=== PATIENT | female | born 1980 | race Caucasian/White ===

== ENCOUNTER → 2020-02-10 06:55 | Outpatient (CLI) | payer OTHER, SELFPAY ==
--- NOTE | ~2020-02-10 | MM_ITS ---
EXAMINATION: MM screening mindi BI w yelena HISTORY: Screening mammogram TECHNIQUE: Craniocaudal and mediolateral oblique 3-D tomosynthesis images were obtained and synthetic 2-D images were generated. CAD analysis was submitted and interpreted. COMPARISON: No prior mammogram is available for comparison at this institution. BREAST PARENCHYMAL COMPOSITION: The breasts are heterogeneously dense, which may obscure small masses . FINDINGS: There is no evidence of suspicious mass, calcification, or architectural distortion to sugg est malignancy in either breast. There has been no suspicious interval change. IMPRESSION: 1. No mammographic evidence of malignancy. 2. Recommend routine screening mammography in one year. BI-RADS Category 1: Negative Reviewed, dictated and finalized at location A.
== END ==
PROVIDERS: PCP Nurse Practitioner Family; Visit Provider Nurse Practitioner Family
DX: Z12.31 Encounter for screening mammogram for malignant neoplasm of breast (principal)
CPT/HCPCS: 77063; 77067

== ENCOUNTER 2020-09-14 09:40 | Emergency (ER) | payer OTHER, SELFPAY ==
[2020-09-14 09:50] VITALS: BP 118/80; PULSE 63; RESP 16; TEMP 36.4; O2SAT 99
--- NOTE | 2020-09-14 10:03 | ED.GENADULT ---
HPI - General Adult General Chief complaint: Upper Respiratory Infection Stated complaint: Congestion Time Seen by Provider: 09/14/20 10:03 Source: patient and RN notes reviewed Mode of arrival: ambulatory Limitations: no limitations History of Present Illness HPI narrative: 39-year-old female presents with complaints of LT otalgia, upper respiratory infection, facial congestion, facial pain, fatigue, and intermittent headaches (not the worst of life) for the past 14 days. Zyrtec, Mucinex, and Tylenol with little to no relief. No facial swelling. Denies cough. Nasal congestion and rhinorrhea. No chest pain or shortness of breath. No exacerbating factors. Denies fever or chills. Denies nausea, vomiting, and abdominal pain. Tolerating po intake well. LMP 3 years ago due to endometrial ablation. Remains active. The patient reports she have not been diagnosed with COVID-19. Shreya says her and her family was tested for COVID on September 08 or September 09 as directed per PMD with NEGATIVE results and she continues to have above complaints. The patient reports she is not waiting for the results of a COVID-19 lab test. The patient reports she do not have fever, chills, weakness, or fatigue. The patient reports she do not have a new or worsening cough or shortness of breath. Denies chest pain. The patient reports she do not have any sore throat, loss of taste, or diarrhea. Denies recent traveling. Denies concerns for COVID-19 or exposures been home with limited outdoor exposure except for essential household needs and return home. At this time, patient is not suspected of having COVID-19. Some parts of this dictation were generated by voice recognition software and may contain typographical and/or grammatical inaccuracies. Related Data Allergies Allergy/AdvReac Type Severity Reaction Status Date / Time No Known Allergies Allergy Verified 09/14/20 09:57 Review of Systems Review of Systems: Narrative: CONSTITUTIONAL: Denies fever, chills, sweats. Complains of fatigue. EYES: Denies visual changes, redness, discharge. ENT: Complains of rhinorrhea, congestion, LT otalgia. Denies sore throat. CARDIOVASCULAR: Denies chest pain, palpitations, edema. RESPIRATORY: Denies dyspnea, wheezing, cough. GASTROINTESTINAL: Denies abdominal pain, nausea, vomiting, diarrhea. GENITOURINARY: Denies dysuria, hematuria, abnormal discharge. SKIN: Denies rash or itching. MUSCULOSKELETAL: Denies acute back pain, joint pain, or myalgia. NEUROLOGIC: Denies numbness or focal weakness. Complains of intermittent KELLY. PSYCHIATRIC: Denies anxiety or depression. All systems reviewed & are unremarkable except as noted in HPI and below. [facility] Past Medical History Medical History (Updated 09/15/20 @ 00:00 by Ilda Daezio) No significant past medical history Surgical History Surgical History (Updated 09/14/20 @ 10:13 by DAREK Nina) History of cholecystectomy History of endometrial ablation 3 years ago Family History Family History (Updated 09/14/20 @ 10:13 by DAREK Nina) Father Unknown family medical history Mother Diabetes mellitus Hypertension Social History Social History (Updated 09/14/20 @ 10:14 by DAREK Nina) Smoking status: Never smoker Tobacco type: cigarettes Second hand tobacco smoke exposure: No Alcohol intake: current Substance use: never Living arrangements: with family Occupation/Education: unemployed Gender identity (if verbalized by the patient): Female Sexual Orientation (if Verbalized by the Patient): Straight or Heterosexual Comments At time of signature, agree with nurse past medical, surgical, social, and family history. There is no relevant family history pertinent to the presenting complaint. Exam Narrative: Exam Narrative: GENERAL: This is a well-nourished, well-developed patient, in no apparent distress. Talks in full sentences and a
== END 2020-09-14 10:21 | disposition home or self-care (01) ==
PROVIDERS: Emergency Provider Nurse Practitioner Family; PCP Nurse Practitioner Family
DX: J32.9 Chronic sinusitis, unspecified (principal)
CPT/HCPCS: 99213; G0463

== ENCOUNTER → 2021-07-01 16:13 | Outpatient (CLI) | payer OTHER, SELFPAY ==
--- NOTE | ~2021-07-01 | MM_ITS ---
EXAMINATION: MM screening mindi BI w yelena HISTORY: Screening TECHNIQUE: Craniocaudal and mediolateral oblique 3-D tomosynthesis images were obtained and synthetic 2-D images were generated. CAD analysis was submitted and interpreted. COMPARISON: 02/10/2020 BREAST PARENCHYMAL COMPOSITION: The breasts are heterogeneously dense, which may obscure small masses . FINDINGS: There is no evidence of suspicious mass, calcification, or architectural distortion to sugg est malignancy in either breast. There has been no suspicious interval change. IMPRESSION: 1. No mammographic evidence of malignancy. 2. Recommend routine screening mammography in one year. BI-RADS Category 1: Negative Reviewed, dictated and finalized at location A.
== END ==
PROVIDERS: PCP Nurse Practitioner Family; Visit Provider Nurse Practitioner Family
DX: Z12.31 Encounter for screening mammogram for malignant neoplasm of breast (principal)
CPT/HCPCS: 77063; 77067

== ENCOUNTER → 2022-08-11 13:17 | Outpatient (CLI) | payer OTHER, SELFPAY ==
--- NOTE | ~2022-08-11 | MM_ITS ---
EXAMINATION: MM screening mindi BI w yelena HISTORY: Screening mammogram TECHNIQUE: Craniocaudal and mediolateral oblique 3-D tomosynthesis images were obtained and synthetic 2-D images were generated. CAD analysis was submitted and interpreted. COMPARISON: 07/01/2021, 02/10/2020 bilateral screening mammogram examinations BREAST PARENCHYMAL COMPOSITION: There are scattered areas of fibroglandular density. FINDINGS: Stable fibroglandular asymmetry. There is no evidence of suspicious mass, calcification, or architectural distortion to suggest malignancy in either breast. There has been no suspicious interv al change. IMPRESSION: 1. No mammographic evidence of malignancy. 2. Recommend routine screening mammography in one year. BI-RADS Category 2: Benign finding(s). Reviewed, dictated and finalized at location A.
== END ==
PROVIDERS: PCP Nurse Practitioner Family; Visit Provider Nurse Practitioner Family
DX: Z12.31 Encounter for screening mammogram for malignant neoplasm of breast (principal)
CPT/HCPCS: 77063; 77067

== ENCOUNTER 2023-02-13 13:40 | Outpatient (CLI) | payer OTHER, SELFPAY ==
--- NOTE | ~2023-02-13 | MMUS_ITS ---
EXAMINATION: MM diagnostic mindi RT w yelena, US breast RT limited HISTORY: Palpable right breast abnormality TECHNIQUE: Additional 3-D tomosynthesis images of the right breast were performed and synthetic 2-D i mages were generated. CAD analysis was submitted and interpreted. High resolution Limited right breas t ultrasound was performed. COMPARISON: Comparison to multiple prior studies sequentially, with oldest reviewed study dated 02/09. BREAST PARENCHYMAL COMPOSITION: The breasts are heterogeneously dense, which may obscure small masses . FINDINGS: MAMMOGRAPHIC FINDINGS: There are no suspicious masses, calcifications or architectural distortion in the right breast to sug gest malignancy. ULTRASOUND: Limited right breast ultrasound: At 10:00, 6 cm from the nipple, there is a 3 mm cyst. No suspicious masses are identified to suggest malignancy. IMPRESSION: 1. No evidence for malignancy in the right breast. Benign findings. 2. Routine yearly screening mammogram and regular clinical breast examination are recommended. BI-RADS Category 2: Benign finding(s). Reviewed, dictated and finalized at location A. IMPRESSION: 1. No evidence for malignancy in the right breast. Benign findings. 2. Routine yearly screening mammogram and regular clinical breast examination a re recommended. BI-RADS Category 2: Benign finding(s).
== END 2023-02-13 13:41 | disposition home or self-care (01) ==
LOC: ANHIMG 13:43
PROVIDERS: PCP Nurse Practitioner Family; Visit Provider Nurse Practitioner Family
DX: N63.10 Unspecified lump in the right breast, unspecified quadrant (principal)
CPT/HCPCS: 76642; 77061; 77065; G0279

== ENCOUNTER → 2023-04-06 14:01 | Outpatient (CLI) | payer OTHER, SELFPAY ==
--- NOTE | ~2023-04-06 | XR_ITS ---
XR cervical spine 4-5V INDICATION: Cervicalgia. Headaches. TECHNIQUE: 4 views of the cervical spine. FINDINGS: No prior studies for comparison. The cervical spine is visualized to the cervicothoracic junction. There is straightening of cervical lordosis which may be due to patient positioning or muscle spasm. There is no prevertebral soft tissu e swelling, listhesis, or loss of vertebral body height. There is mild uncinate hypertrophy at C3-4 a nd C4-5. Intervertebral disc spaces are normal. The osseous central canal is patent. No displaced c ervical spine fractures are identified. IMPRESSION: 1. Mild cervical spondylosis.. Reviewed, dictated and finalized at location L.
== END ==
PROVIDERS: PCP Nurse Practitioner Family; Visit Provider Nurse Practitioner Family
DX: M47.812 Spondylosis without myelopathy or radiculopathy, cervical region (principal)
CPT/HCPCS: 72050

== ENCOUNTER 2023-09-05 12:50 | Outpatient (CLI) | payer OTHER, SELFPAY ==
--- NOTE | ~2023-09-05 | MM_ITS ---
EXAMINATION: MM screening mindi BI w yelena HISTORY: Screening mammogram TECHNIQUE: Craniocaudal and mediolateral oblique 3-D tomosynthesis images were obtained and synthetic 2-D images were generated. CAD analysis was submitted and interpreted. COMPARISON: 02/13/2023 diagnostic right mammogram and limited right breast ultrasound 08/11/2022, 07/01/2021, 02/10/2020 bilateral screening mammogram examinations BREAST PARENCHYMAL COMPOSITION: The breasts are heterogeneously dense, which may obscure small masses . FINDINGS: There is no evidence of suspicious mass, calcification, or architectural distortion to sugg est malignancy in either breast. There has been no suspicious interval change. IMPRESSION: 1. No mammographic evidence of malignancy. 2. Recommend routine screening mammography in one year. BI-RADS Category 1: Negative Reviewed, dictated and finalized at location A.
== END 2023-09-05 12:51 | disposition home or self-care (01) ==
LOC: CHSIMG 12:51
PROVIDERS: PCP Nurse Practitioner Family; Visit Provider Nurse Practitioner Family
DX: Z12.31 Encounter for screening mammogram for malignant neoplasm of breast (principal)
CPT/HCPCS: 77063; 77067

== ENCOUNTER 2024-03-19 14:40 | Outpatient (CLI) | payer OTHER, SELFPAY ==
--- NOTE | 2024-03-19 14:55 | ECHO_ITS ---
Patient Info Name: Shreya Mcgarry Age: 43 years : 1980 Gender: Female Ht: 59 in Wt: 124 lbs BSA: 1.54 m2 HR: 67 bpm BP: 114 / 79 mmHg Heart Rhythm: Sinus Rhythm Technical Quality: Fair Exam Date: 03/19/2024 3:11 PM Exam Location: Echo Lab Patient Status: Outpatient Admit Date: 03/19/2024 Staff Ordering Physician: Rosario Nielsen APRN Camera Maker: José Miguel Brunner RDCS Attending Provider: Rosario Nielsen APRN Referring Physician: Morales ROSALES; Exam Type: CA echo doppler color flow Study Info Indications Z82.79 - Family history of other congenital malformations, deformations and chromosomal abnormalities Complete two-dimensional, color flow and Doppler transthoracic echocardiogram is performed. Summary 1. Complete two-dimensional, color flow and Doppler transthoracic echocardiogram is performed. 2. Left ventricular chamber dimension is normal. 3. Left ventricular systolic function is normal, estimated at 65-70%. 4. The left ventricular diastolic function is normal. 5. Right ventricular systolic function is normal. 6. No significant valvular disease. Left Ventricle Left ventricular chamber dimension is normal. Left ventricular systolic function is normal, estimated at 65-70%. There is no increased left ventricular wall thickness. The left ventricular diastolic function is normal. Right Ventricle Right ventricular chamber dimension is normal. Right ventricular systolic function is normal. Left Atria Left atrial chamber dimension is normal. Right Atria Right atrial chamber dimension is normal. Atrial Septum Intact interatrial septum visualized by color flow imaging. Aortic Valve The aortic valve is probable trileaflet. There is no aortic valve stenosis. Pulmonic Valve The pulmonic valve is not well visualized. There is trace pulmonic regurgitation. Mitral Valve There is trace mitral valve regurgitation. Tricuspid Valve There is trace tricuspid valve regurgitation. Pericardium/Pleural There is no pericardial effusion. Inferior Vena Cava Normal inferior vena cava with >50% collapse upon inspiration consistent with normal right atrial pressure, 3 mmHg. Aorta The aortic root size at the sinus of Valsalva is normal. Left Ventricular Outflow Tract Name Value Normal LVOT 2D LVOT Diameter 1.9 cm LVOT Doppler LVOT Peak Gradient 5 mmHg LVOT Mean Gradient 3 mmHg LVOT VTI 22 cm LVOT VTI/AV VTI Ratio 0.7 LVOT Stroke Volume 60 ml LVOT CO 3.9 l/min LVOT CI 2.5 l/min/m2 Pulmonic Valve Name Value Normal RVOT Doppler RVOT Peak Gradient 2 mmHg PV Doppler PV Peak Gradient 4 mmHg
== END 2024-03-19 14:41 | disposition home or self-care (01) ==
PROVIDERS: PCP Nurse Practitioner Family; Visit Provider Nurse Practitioner Family
DX: Z82.79 Family history of other congenital malformations, deformations and chromosomal abnormalities (principal)
CPT/HCPCS: 93306

== ENCOUNTER 2024-09-20 07:42 | Outpatient (CLI) | payer OTHER, SELFPAY ==
--- NOTE | ~2024-09-20 | MM_ITS ---
EXAMINATION: MM screening mindi BI w yelena HISTORY: Screening TECHNIQUE: Craniocaudal and mediolateral oblique 3-D tomosynthesis images were obtained and synthetic 2-D images were generated. CAD analysis was submitted and interpreted. COMPARISON: Comparison to multiple prior studies sequentially, with oldest reviewed study dated 02/09. BREAST PARENCHYMAL COMPOSITION: Dense: The breasts are heterogeneously dense, which may obscure small masses FINDINGS: New small partially obscured mass in the upper inner quadrant of the right breast, anterior depth. The left breast is stable without evidence for malignancy. IMPRESSION: 1. New partially obscured mass upper inner quadrant of the right breast, middle depth. 2. Additional mammographic views and possible breast ultrasound are recommended. BI-RADS Category 0: Incomplete: Needs additional imaging evaluation. Reviewed, dictated and finalized at location B. IMPRESSION: 1. New partially obscured mass upper inner quadrant of the right breast, middle depth. 2. Additional mammographic views and possible breast ultrasound are recommended . BI-RADS Category 0: Incomplete: Needs additional imaging evaluation.
== END 2024-09-20 07:43 | disposition home or self-care (01) ==
LOC: CHSIMG 07:42
PROVIDERS: PCP Nurse Practitioner Family; Visit Provider Nurse Practitioner Family
DX: Z12.31 Encounter for screening mammogram for malignant neoplasm of breast (principal); R92.8 Other abnormal and inconclusive findings on diagnostic imaging of breast
CPT/HCPCS: 77063; 77067

== ENCOUNTER 2024-09-30 08:11 | Outpatient (CLI) | payer OTHER, SELFPAY ==
--- NOTE | ~2024-09-30 | MMUS_ITS ---
EXAMINATION: MM diagnostic mindi RT w yelena, US breast RT complete HISTORY: Follow-up right breast asymmetries TECHNIQUE: Additional 3-D tomosynthesis images of the right breast were performed and synthetic 2-D i mages were generated. CAD analysis was submitted and interpreted. High resolution complete right [address] ultrasound was performed. COMPARISON: Comparison to multiple prior studies sequentially, with oldest reviewed study dated 02/09. BREAST PARENCHYMAL COMPOSITION: Not dense: There are scattered areas of fibroglandular density. FINDINGS: MAMMOGRAPHIC FINDINGS: There are no suspicious masses, calcifications or architectural distortion to suggest malignancy. ULTRASOUND: Complete US of all 4 quadrants of the breast/s and retroareolar region was reviewed. At 11:00 near th e nipple there is an oval hypoechoic parallel orientation mass with heterogeneous internal echotextur e measuring 4 mm. No internal vascularity or posterior features. This mass is likely benign. IMPRESSION: 1. Probable benign right breast mass at 11:00 near the nipple. 2. Recommend 6 month follow-up Limited right breast ultrasound BI-RADS category 3, probably benign findings. Reviewed, dictated and finalized at location B. [employer] IMPRESSION: 1. Probable benign right breast mass at 11:00 near the nipple. 2. Recommend 6 month follow-up Limited right breast ultrasound BI-RADS category 3, probably benign findings.
== END 2024-09-30 08:12 | disposition home or self-care (01) ==
LOC: CHSIMG 08:12
PROVIDERS: PCP Nurse Practitioner Family; Visit Provider Nurse Practitioner Family
DX: R92.8 Other abnormal and inconclusive findings on diagnostic imaging of breast (principal)
CPT/HCPCS: 76641; 77061; 77065; G0279

== ENCOUNTER 2024-12-02 06:19 | Day surgery (SDC) | payer OTHER, SELFPAY ==
[2024-10-23 11:14] VITALS: BMI 24.5
[2024-11-12 12:32] VITALS: BMI 23.7
[2024-12-02 07:19] VITALS: BP 129/86; PULSE 85; RESP 18; TEMP 36.9; O2SAT 100
[2024-12-02] MEDS: LACTATED RINGERS 1,000 ML 150 ML IV CONT (07:39)
--- NOTE | 2024-12-02 07:51 | P.PNAN_ITS ---
Anes - Initial Pre Proc Eval Procedure: Operation Date: 12/02/24 08:30 Proposed Procedures p Screening Colonoscopy - Clint Olsen DO Date/Time: 12/02/24 07:51 Surgeon: Clint Olsen DO Pre Op Diagnosis: Neoplasm Screening Patient Data Age: 44 Gender: F Height: 1.5 m Weight: 53.6 kg Last Vital Signs Temp 36.9 C 12/02/24 07:19 Pulse 85 12/02/24 07:19 Resp 18 12/02/24 07:19 BP 129/86 12/02/24 07:19 Pulse Ox 100 12/02/24 07:19 O2 Del Method Room Air 12/02/24 07:19 Allergies Allergy/AdvReac Type Severity Reaction Status Date / Time No Known Allergies Allergy Verified 12/02/24 07:14 Home Medications ?Medication ?Instructions ?Recorded ?Confirmed ?Type pravastatin 10 mg tablet 10 mg PO DAILY #90 tabs 10/22/24 12/02/24 Rx Patient hx anesthesia problems: none Family hx anesthesia problems: none Results Review: All pre-operative results and documents have been reviewed as part of the pre-operative evaluation. COUNTS INCLUDE 234 BEDS AT THE [facility] Past Medical History Medical History Family history of congenital heart disease No significant past medical history Surgical History Surgical History History of cholecystectomy (2009) History of endometrial ablation (~2017) 3 years ago Family History Family History Father Unknown family medical history Mother Diabetes mellitus Hypertension Depression Grandparent Diabetes mellitus Heart disease Social History Social History Social History: 10/19/24 very confident with medical forms Smoking status: Never smoker Tobacco type: cigarettes Second hand tobacco smoke exposure: No Alcohol intake: current Alcohol use details: 0-1 per week Substance use: never Substance use type: does not use Do You Feel Safe in your Home?: Yes Lack of Transportation: No Lack of Food: Never True Current Housing: I Have Housing Concerned About Future Housing: No Difficulty Paying Gas/Electric Bills: No Difficulty Paying for Meds: No Currently Unemployed: No Education: Bachelor's Degree Difficulty w/ Childcare or Family Care: No Living arrangements: with family Occupation/Education: unemployed Gender identity (if verbalized by the patient): Female Sexual Orientation (if Verbalized by the Patient): Straight or Heterosexual Agree to blood products: Yes Anes - Eval Final PreProcedure Day of Procedure 12/02/24 07:51 Patient weight: normal Heart: regular rate and rhythm Lungs: clear to auscultation Airway: Mallampati scale class II Neurological: alert and oriented Last oral intake: >/= 8 hours ASA classification: II Emergent: no Anesthetic plan: proceed Anesthesia type and monitoring: general GIVS and standard monitoring Results Review: All pre-operative results and documents have been reviewed as part of the pre- operative evaluation. Informed Consent: The patient's anesthetic plan and its attendant risks and benefits were discussed with the patient/family/POA. Questions were solicited and answers provided to the satisfaction of the patient/family/POA.
--- NOTE | 2024-12-02 08:20 | PM.IMHP ---
H&P: HPI History of Present Illness Date/Time: 12/02/24 08:20 Chief Complaint: screening for colorectal cancer Narrative: this is a 44-year-old woman who presents for colonoscopy. She has never had a colonoscopy before. She denies any hematochezia or melena. She denies any family history of colon cancer. Review of Systems Review of Systems: All systems reviewed & are unremarkable except as noted in HPI and below Constitutional: Constitutional: Denies chills, Denies fever(s), Denies headache(s) and Denies weight loss Eyes: Eyes: Denies change in vision ENT: Denies dizziness, Denies headache(s), Denies neck mass and Denies throat swelling Cardiovascular: Cardiovascular: Denies chest pain, Denies lightheadedness and Denies dyspnea Respiratory: Respiratory: Denies cough, Denies dyspnea and Denies wheezing Gastrointestinal: Gastrointestinal: Denies abdominal pain, Denies change in bowel habits, Denies nausea and Denies vomiting Genitourinary: Genitourinary: Denies hematuria and Denies dysuria Musculoskeletal: Musculoskeletal: Reports as per HPI Integumentary/Breasts: Skin/Breast: Reports as per HPI Neurologic: Denies dizziness and Denies headache(s) Allergic/Immunologic: Allergic/Immunologic: Denies throat swelling and Denies wheezing PMF Past Medical History Medical History Family history of congenital heart disease No significant past medical history Surgical History Surgical History History of cholecystectomy (2009) History of endometrial ablation (~2017) 3 years ago Family History Family History Father Unknown family medical history Mother Diabetes mellitus Hypertension Depression Grandparent Diabetes mellitus Heart disease Social History Social History Social History: 10/19/24 very confident with medical forms Smoking status: Never smoker Tobacco type: cigarettes Second hand tobacco smoke exposure: No Alcohol intake: current Alcohol use details: 0-1 per week Substance use: never Substance use type: does not use Do You Feel Safe in your Home?: Yes Lack of Transportation: No Lack of Food: Never True Current Housing: I Have Housing Concerned About Future Housing: No Difficulty Paying Gas/Electric Bills: No Difficulty Paying for Meds: No Currently Unemployed: No Education: Bachelor's Degree Difficulty w/ Childcare or Family Care: No Living arrangements: with family Occupation/Education: unemployed Gender identity (if verbalized by the patient): Female Sexual Orientation (if Verbalized by the Patient): Straight or Heterosexual Agree to blood products: Yes Meds Home Medications and Allergies Home Medications ?Medication ?Instructions ?Recorded ?Confirmed ?Type pravastatin 10 mg tablet 10 mg PO DAILY #90 tabs 10/22/24 12/02/24 Rx Allergies Allergy/AdvReac Type Severity Reaction Status Date / Time No Known Allergies Allergy Verified 12/02/24 07:14 Vital Signs Vital Signs - 24 hr 12/02/24 07:19 Temperature 98.4 F Pulse Rate 85 Respiratory Rate 18 Blood Pressure 129/86 Pulse Oximetry 100 Oxygen Delivery Room Air Exam Const: General: no acute distress and alert Orientation/consciousness: patient oriented x3 HENMT: Head: normocephalic and atraumatic Ears: hearing grossly normal bilaterally Face/Nose/Sinus: Normal nares present Mouth: Yes Normal oral and palatal mucosa present Eyes: Periorbital: periorbital findings normal Sclera: sclerae normal EOM: EOMs intact bilaterally Neck: Neck: normal visual inspection, no lymphadenopathy and trachea midline Chest: Chest palpation & inspection: normal inspection of the chest Resp: Effort & Inspection: normal respiratory effort Auscultation: clear to auscultation bilaterally Cardio: Jugular venous distension: no JVD Rate: regular rate Rhythm: regular rhythm Heart sounds: S1 normal heart sound present and S2 normal heart sound present Peripheral pulses: Peripheral pulses 2+ throughout GI: Inspection: normal to inspection GI Palp: Yes Soft to palpation, No Tenderness to palpation present (GI), No Guarding due to palpation present (GI) and No Rebound tenderness present Percussion: Yes normal to percussion Auscultation: normal bowel sounds : General: Yes no CVA tenderness Back/Spine/Pelvis: Back: no CVA tenderness Neuro: General: patient oriented x3, no focal motor deficits and CN's II-XI intact bilaterally Cognition (Neuro): normal cognition Speech: normal speech Motor exam (neuro): 5/5 motor strength present throughout Extrem: General: capillary refill normal and no clubbing, cyanosis or edema Assessment and Plan Assessment and plan (1) Screening for colorectal cancer: Code(s): Z12.11 - Encounter for screening for malignant neoplasm of colon; Z12.12 - Encounter for screening for malignant neoplasm of rectum Status: Acute Assessment and Plan: I have recommended colonoscopy. I have discussed the procedure, risks, benefits, and alternatives. Questions were answered. Patient is agreeable to proceed.
[2024-12-02 08:46] VITALS: BP 98/61; PULSE 81; RESP 16; O2SAT 98
[2024-12-02 08:56] VITALS: BP 105/70; PULSE 78; RESP 16; O2SAT 100
[2024-12-02 09:06] VITALS: BP 101/63; PULSE 70; RESP 18; O2SAT 100
--- NOTE | 2024-12-02 09:19 | WPDANESPN ---
Anes - Prog Note Post-Op Date/Time: 12/02/24 09:19 Cardiovascular status: normal Respiratory status: normal Airway patency: baseline Mental status: baseline Post-Op hydration status: normal Vital Signs: Last Vital Signs Temp 36.9 C 12/02/24 07:19 Pulse 70 12/02/24 09:06 Resp 18 12/02/24 09:06 BP 101/63 12/02/24 09:06 Pulse Ox 100 12/02/24 09:06 O2 Del Method Room Air 12/02/24 09:06 Pain Score (VAS): 0/10 I/O: Intake & Output 12/01/24 12/02/24 12/02/24 23:59 07:59 15:59 Intake Total 850 Balance 850 Patient Feedback: Patient satisfied with anesthetic care.
--- OUTSIDE RECORDS SUMMARY | 2024-12-08 14:44 | XMS_ITS | Encounter Summary ---
Author Organization [facility] Address [address] [place] [id number] Care Team Providers Care Thread Grinder Tool Name Role Phone Unavailable Primary Care Provider Unavailabl e Encounter Details Date Type Department Care Team (Late st Contact Info) Description 12/11/2020 Lab Requisition [facility] Community Testing [facility] [address] [place] [address] [place] [address] [place] [address] Social History Tobacco Use Types Packs/Day Years Used Date Smoking Tobacco: Never Assessed Comments Unknown Sex and Gender Information Value Date Recorded Sex Assigned at Not on file Legal Sex Female 11:07 AM INFORMATION SYSTEMS SECURITY DEVELOPER Gender Identity Not on file Sexual Orientation Not on file documented as of this encounter Plan of Treatment Not on file documented as of this encounter Procedures Procedure Name Priority Date/Time Associated Diagnosis Comments SARS-COV-2 PCR [facility] ONLY Routine 12/11/2020 11:14 AM INFORMATION SYSTEMS SECURITY DEVELOPER documented in this encounter Visit Diagnoses Not on filedocumented in this encounter
--- OUTSIDE RECORDS SUMMARY | 2024-12-08 14:44 | XMS_ITS | Clinical Summary ---
Author Organization [facility] Address [address] [place] [address] Care Team Providers Care Assayer Helper Name Role Phone Brandi Griffith MD Primary Care Provider Source Comments [facility],non-owned Affiliates and Associated Physician Practices is amultiple site organization consisting of ambulatory clinics and hospital sitesin [place], [place], [place] and [place]. This disclosure is being madepursuant to the Care Everywhere program and may not contain all information available regarding this patient. Last updated 18.[facility] Allergies No known active allergies Medications * Be aware that medications may not be up to date on this document. Alwaysverify current medications with the patient. 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 Family History Medical History Relation Name Comments Hypertension Maternal Grandfather Diabetes; unknown type Maternal Grandmother Hypertension Maternal Grandmother Diabetes; unknown type Mother Hypertension Mother Relation Name Status Comments Maternal Grandfather Maternal Grandmother Mother Social History Tobacco Use Types Packs/Day Years Used Date Smoking Tobacco: Never Smokeless Tobacco: Never Alcohol Use Standard Drinks/Week Comments Yes 0 (1 standard drink = 0.6 oz pur e alcohol) Very Rarely - per pt Sex and Gender Information Value Date Recorded Sex Assigned at Not on file Gender Identity Not on file Sexual Orientation Not on file Plan of Treatment Health Maintenance Due Date Last Done Comments COLOGUARD (AGES 45-75) - COL ON CA SCREENING 1979 COLON MONITORING 1979 COLONOSCOPY - COLON CA SCREENING 1979 CT COLONOGRAPHY - COLON CA SCREENING 1979 Colorectal Cancer Screening 1979 FIT - COLON CA SCREENING 1979 FLEX SIG - COLON CA SCREENING 1979 LIPID TESTING 1979 MAMMOGRAM 1979 PAP SMEAR 1979 HIV SCREENING 1994 HEPATITIS C SCREENING 10/12/1997 DTAP/TDAP/TD VACCINES (1 - Tdap) 1998 HEPATITIS B VACCINE (1 of 3 - 19+ 3-dose series) 1998 COVID-19 VACCINE (1 - 2023-2 5 season) 2024 INFLUENZA VACCINE (#1) 2024 09/12/2019 DEPRESSION SCREENING 11/27/2024 ZOSTER VACCINE (1 of 2) 2029 HIB VACCINE Aged Out No longer eligi ble based on patient's age to complete this topic HPV VACCINE Aged Out No longer eligi ble based on patient's age to complete this topic MENINGOCOCCAL VACCINE Aged Out No suzanne shiloh eligible based on patient's age to complete this topic PNEUMOCOCCAL VACCINE Aged Out No long er eligible based on patient's age to complete this topic Care Teams Assayer Helper Relationship Specialty Start Date End Date Brandi Griffith MD [address] [place] [id number] PCP - General 08/17/20
--- OUTSIDE RECORDS SUMMARY | 2024-12-08 14:44 | XMS_ITS | Referral Summary ---
Author Organization [email or web address] Address [address] [place] [address] Care Team Providers Care Scorer Single Name Role Phone Brandi Griffith MD Primary Care Provider Source Comments [email or web address],non-owned Affiliates and Associated Physician Practices is amultiple site organization consisting of ambulatory clinics and hospital sitesin [place], [place], [place] and [place]. This disclosure is being madepursuant to the Care Everywhere program and may not contain all information available regarding this patient. Last updated 18.[email or web address] Allergies No known active allergies Medications * Be aware that medications may not be up to date on this document. Alwaysverify current medications with the patient. 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
--- OUTSIDE RECORDS SUMMARY | 2024-12-08 14:44 | XMS_ITS | Encounter Summary ---
Author Organization [facility] Address [address] [place] [address] Care Team Providers Care Banking Consultant Name Role Phone Unavailable Primary Care Provider Unavailabl e Encounter Details Date Type Department Care Team (Late st Contact Info) Description 12/11/2020 11:15 AM PATCH SANDER Rapid Evaluation [place] [facility] Community Testing [address] [id number] Social History Tobacco Use Types Packs/Day Years Used Date Smoking Tobacco: Never Assessed Comments Unknown Sex and Gender Information Value Date Recorded Sex Assigned at Not on file Legal Sex Female 11:07 AM PATCH SANDER Gender Identity Not on file Sexual Orientation Not on file documented as of this encounter Plan of Treatment Not on file documented as of this encounter Visit Diagnoses Not on filedocumented in this encounter
--- OUTSIDE RECORDS SUMMARY | 2024-12-08 14:44 | XMS_ITS | Patient Health Summary ---
Author Organization [facility] Address [address] [place] [address] Care Team Providers Care Plant Technical Specialist Name Role Phone Brandi Griffith MD Primary Care Provider Note from [facility],non-owned Affiliates and Associated Physician Practices is amultiple site organization consisting of ambulatory clinics and hospital sitesin [place], [place] and [place]. This disclosure is being madepursuant to the Care Everywhere program and may not contain all information available regarding this patient. Last updated 18.[facility] Allergies No known active allergies Medications * Be aware that medications may not be up to date on this document. Alwaysverify current medications with the patient. * MULTIPLE VITAMIN PO Active Problems Problem Noted Date Diagnosed Date [...] on file Sexual Orientation Not on file Procedures * OPH OCT TEST [facility](Performed 08/17/2020) Performed for Drusen of both optic discs * OPH COLOR FUNDUS PHOTOGRAPHY [facility](Performed 08/17/2020) Performed for Pseudopapilledema of both optic discs * OPH VISUAL FIELD TEST [facility](Performed 08/17/2020) Performed for Pseudopapilledema of both optic discs * OPH OCT TEST [facility](Performed 08/17/2020) Performed for Pseudopapilledema of both optic discs * EYE EXAM(Performed 08/13/2020) Results * OPH OCT TEST [facility] (08/17/2020 10:24 AM CDT) Anatomical Region Laterality Modality Other 08/17/2020 10:2 4 AM CDT Caio Ferrell MD OPHTHALMOLOGY SERVIC ES ORDERABLES * OPH COLOR FUNDUS PHOTOGRAPHY [facility] (08/17/2020 9:22 AM CDT) Anatomical Region Laterality Modality Other 08/17/2020 9:22 AM CDT Karly Loza MD OPHTHALMOLOGY SERVIC ES ORDERABLES * OPH VISUAL FIELD TEST [facility] (08/17/2020 8:54 AM CDT) Anatomical Region Laterality Modality Other 08/17/2020 8:54 AM CDT Karly Loza MD OPHTHALMOLOGY SERVIC ES ORDERABLES * OPH OCT TEST [facility] (08/17/2020 7:11 AM CDT) Anatomical Region Laterality Modality Other 08/17/2020 7:11 AM CDT Karly Loza MD OPHTHALMOLOGY SERVIC ES ORDERABLES * EYE EXAM (08/13/2020 7:40 AM CDT) Anatomical Region Laterality Modality Other Narrative 08/13/2020 7:40 AM CDT Ordered by an unspecified provider. Scanned Document SCANNING ONLY Care Teams Plant Technical Specialist Relationship Specialty Start Date End Date Brandi Griffith MD [address] [place] [id number] PCP - General 08/17/20
--- OUTSIDE RECORDS SUMMARY | 2024-12-08 14:44 | XMS_ITS | Clinical Summary ---
Author Organization [facility] Care Team Providers Care Water Resource Project Manager Name Role Phone Unavailable Primary Care Provider Unavailabl e Social History Tobacco Use Types Packs/Day Years Used Date Smoking Tobacco: Never Assessed Comments Unknown Sex and Gender Information Value Date Recorded Sex Assigned at Not on file Legal Sex Female 11:07 AM TOOL PUSHER Gender Identity Not on file Sexual Orientation Not on file Plan of Treatment Health Maintenance Due Date Last Done Comments Hepatitis C Virus (HCV) Screening 1979 Hepatitis B Immunization (1 of 3 - 19+ 3-dose series) 1998 Pap Smear 2000 Cervical Cancer Screening (CCS) 2009 HPV/Cotest 2009 Discussion re Starting/Frequ ency of Mammograms 2019 Influenza Immunization (#1) 2024 09/12/2019 SARS-COV-2 Immunization (2023- season) 2024 Colonoscopy 2024 Colorectal Cancer Screening 2024 Respiratory Syncytial Virus (RSV) Immunization (Adult) (1 - 1-dose 75+ series) 2054 DTaP/Tdap/Td Immunization Discontinued 01/18/2016 TdaP Immunization Completed 01/18/2016 Meningococcal Immunization (ACWY) Aged Out No longer eligible based on patient's age to complete this topic Pneumococcal Immunization Combined Aged Out No longer eligible b ased on patient's age to complete this topic Rotavirus Immunization Aged Out No lo nger eligible based on patient's age to complete this topic
--- OUTSIDE RECORDS SUMMARY | 2024-12-08 14:44 | XMS_ITS | Data Portability ---
Author Organization [place] - [facility] [employer], Main Office Address [address] [place] [address] Care Team Providers Care Home Visitor Name Role Phone SEB ROSARIO Primary Care Provider [phone] Assessment Encounter Date Assessment Date Assessment LastModified by Organization Details LastModified Time 04/06/2023 04/06/2023 Labs after 04/19/23 Not available 04/06/2023 11:23:43 Plan of Treatment Reminders Order Date Submit Date Provider Last Modified By Organization Details Last Modified Time Details Appointments None recorded. Lab vitamin B12, serum [address], [address] [place], [address], 3 07:56:25 vitamin D, 25-hydroxy, total, serum [address], [address] [place], [address], 3 07:56:25 TSH, serum, reflex free T4 [address], [address] [place], [address], 3 07:56:24 lipid panel, serum [address], [address] [place], [address], 3 07:56:24 CMP, serum or plasma [address], [address] [place], [address], 3 07:56:24 HbA1c (hemoglobin A1c), blood [address], [address] [place], [address], 07:56:24 CBC w/ auto diff [address], [address] [place], [address], 07:56:24 pap, IG + reflex HR HPV [address] [facility] ([facility] [address] [place], [address], 10:54:57 Referral None recorded. Procedures None recorded. Surgeries None recorded. Imaging XR, cervical spine 2022 023 [facility], [address], [place] [address], [place], [address], 16:28:24 Medication Orders cyclobenzap rine 5 mg tablet [address] [id number], [address] [place], [place], [id number], 10:04:10 rizatriptan 10 mg disintegrat ing tablet 2022 023 [id number], [address] [place], [place], [id number], 17:33:51 Patient TargetsNo targets recorded. Patient Instructions Encounter Date Encounter Id Patient Instructions Last Modified By Organization Details Last Modified Time 09/05/2023 [id number] FU in 1 year for well woman after 09/06/24 Not available 09/05/2023 10:37:15 Reason for Referral None Reported. Results Created Date Observation Date Name Description Value Unit Range Abnormal Flag Note LastModifiedBy Organization Detail LastModifiedTime 08/01/20 23 08/01/2023 CBC/C OMPLE TE BLD COUNT W/DIF F white blood cells 5.4 x10'3 /uL 4.2-10 .8 Not Available [facility] (Lab) [address] [place], [address], 08/01/2023 13:58:47 08/01/20 23 08/01/2023 CBC/C OMPLE TE BLD COUNT W/DIF F red blood cells 4.77 x10'6 /uL 3.80-5 .20 Not Available [facility] (Lab) [address] [place], [address], 08/01/2023 13:58:47 08/01/20 23 08/01/2023 CBC/C OMPLE TE BLD COUNT W/DIF F hemoglobin 14.2 g/dL 12.0-1 5.6 Not Available [facility] (Lab) [address] [place], [address], 08/01/2023 13:58:47 08/01/20 23 08/01/2023 CBC/C OMPLE TE BLD COUNT W/DIF F hematocrit 44.0 % 35.7-4 5.7 Not Available [facility] (Lab) [address] [place], [address], 08/01/2023 13:58:47 08/01/20 23 08/01/2023 CBC/C OMPLE TE BLD COUNT W/DIF F mean red cell volume 92.2 fL 82.0-9 9.0 Not Available [facility] (Lab) [address] [place], [address], 08/01/2023 13:58:47 08/01/20 23 08/01/2023 CBC/C OMPLE TE BLD COUNT W/DIF F mean red cell hemoglobin 29.8 pg 27.0-3 3.0 Not Available [facility] (Lab) [address] [place], [address], 08/01/2023 13:58:47 08/01/20 23 08/01/2023 CBC/C OMPLE TE BLD COUNT W/DIF F mean RBC HGB concentratio n 32.3 g/dL 31.0-3 6.0 Not Available [facility] (Lab) [address] [facility] [place], [address], 08/01/2023 13:58:47 08/01/20 23 08/01/2023 CBC/C OMPLE TE BLD COUNT W/DIF F red cell distribution width 12.1 % 11.8-1 5.5 Not Available [facility] (Lab) [address] [place], [address], 08/01/2023 13:58:47 08/01/20 23 08/01/2023 CBC/C OMPLE TE BLD COUNT W/DIF F platelets 296 x10'3 /uL 150-40 0 Not Available [facility] (Lab) [address] [place], [address], 08/01/2023 13:58:47 08/01/20 23 08/01/2023 CBC/C OMPLE TE BLD COUNT W/DIF F mean platelet volume 9.3 fL 9.0-12 .4 Not Available [facility] (Lab) [address] [place], [address], 08/01/2023 13:58:47 08/01/20 23 08/01/2023 CBC/C OMPLE TE BLD COUNT W/DIF F neutrophils 52.7 % 39.0-7 2.0 Not Available [facility] (Lab) [address] [place], [address], 08/01/2023 13:58:47 08/01/20 23 08/01/2023 CBC/C OMPLE TE BLD COUNT W/DIF F lymphocytes 32.1 % 16.0-4 7.0 Not Available [facility] (Lab) [address] [place], [address], 08/01/2023 13:58:47 08/01/20 23 08/01/2023 CBC/C OMPLE TE BLD COUNT W/DIF F monocytes 10.9 % 5.0-12 .0 Not Available [facility] (Lab) [address] [place], [address], 08/01/2023 13:58:47 08/01/20 23 08/01/2023 CBC/C OMPLE TE BLD COUNT W/DIF F eosinophils 2.6 % 1.0-7. 0 Not Available [facility] (Lab) [address] [place], [address], 08/01/2023 13:58:47 08/01/2008/01/2023 CBC/C OMPLE TE BLD COUNT W/DIF F basophils 1.3 % 0.0-2. 0 Not Available [facility] (Lab) [address] [place], [address], 08/01/2023 13:58:47 08/01/20 23 08/01/2023 CBC/C OMPLE TE BLD COUNT W/DIF F immature granulocytes 0.4 % 0.00-0 .50 Not Available [facility] (Lab) [address] [place], [address], 08/01/2023 13:58:47 08/01/20 23 08/01/2023 CBC/C OMPLE TE BLD COUNT W/DIF F neutrophils, absolute count 2.86 x10'3 /uL 1.5-8. 0 Not Available [facility] (Lab) [address] [place], [address], 08/01/2023 13:58:47 08/01/20 23 08/01/2023 CBC/C OMPLE TE BLD COUNT W/DIF F lymphocytes, absolute count 1.74 x10'3 /uL 1.07-3 .43 Not Available [facility] (Lab) [address] [place], [address], 08/01/2023 13:58:47 08/01/20 23 08/01/2023 CBC/C OMPLE TE BLD COUNT W/DIF F monocytes, absolute count 0.59 x10'3 /uL 0.29-0 .99 Not Available [facility] (Lab) [address] [place], [address], 08/01/2023 13:58:47 08/01/20 23 08/01/2023 CBC/C OMPLE TE BLD COUNT W/DIF F eosinophils, absolute count 0.14 x10'3 /uL 0.02-0 .53 Not Available [facility] (Lab) [address] [place], [address], 08/01/2023 13:58:47 08/01/20 23 08/01/2023 CBC/C OMPLE TE BLD COUNT W/DIF F basophils, absolute count 0.07 x10'3 /uL 0.01-0 .08 Not Available [facility] (Lab) [address] [place], [address], 08/01/2023 13:58:47 08/01/2008/01/2023 CBC/C OMPLE TE BLD COUNT W/DIF F immature granulocytes ,absolute 0.02 x10'3 /uL 0.00-0 .05 Not Available [facility] (Lab) [address] [place], [address], 08/01/2023 13:58:47 08/01/20 23 08/01/2023 CBC/C OMPLE TE BLD COUNT W/DIF F nucleated red blood cells 0.0 % -0 Not Available [facility] (Lab) [address] [place], [address], 08/01/2023 13:58:47 08/01/20 23 08/01/2023 CBC/C OMPLE TE BLD COUNT W/DIF F NRBC# 0.00 x10'3 /uL Not Available [facility] (Lab) [address] [place], [address], 08/01/2023 13:58:47 08/01/20 23 08/01/2023 COMPR EHENS KLEBER METAB OLIC PANEL sodium 139 mmol/ L 137-14 5 Not Available [facility] (Lab) [address] [place], [address], 08/01/2023 14:42:07 08/01/20 23 08/01/2023 COMPR EHENS KLEBER METAB OLIC PANEL potassium 4.4 mmol/ L 3.5-5. 1 Not Available [facility] (Lab) [address] [place], [address], 08/01/2023 14:42:07 08/01/20 23 08/01/2023 COMPR EHENS KLEBER METAB OLIC PANEL chloride 105 mmol/ L 98-107 Not Available [facility] (Lab) [address] [place], [address], 08/01/2023 14:42:07 08/01/20 23 08/01/2023 COMPR EHENS KLEBER METAB OLIC PANEL carbon dioxide 26 mmol/ L 22-30 Not Available [facility] (Lab) [address] [place], [address], 08/01/2023 14:42:07 08/01/20 23 08/01/2023 COMPR EHENS KLEBER METAB OLIC PANEL anion gap 12.4 mmol/ L 14-22 low Not Available [facility] (Lab) [address] [place], [address], 08/01/2023 14:42:07 08/01/20 23 08/01/2023 COMPR EHENS KLEBER METAB OLIC PANEL glucose 87 mg/dL 70-99 Not Available [facility] (Lab) [address] [place], [address], 08/01/2023 14:42:07 08/01/20 23 08/01/2023 COMPR EHENS KLEBER METAB OLIC PANEL BUN 17 mg/dL 8-19 Not Available [facility] (Lab) [address] [place], [address], 08/01/2023 14:42:07 08/01/20 23 08/01/2023 COMPR EHENS KLEBER METAB OLIC PANEL creatinine 0.71 mg/dL 0.66-1 .25 Not Available [facility] (Lab) [address] [place], [address], 08/01/2023 14:42:07 08/01/20 23 08/01/2023 COMPR EHENS KLEBER METAB OLIC PANEL GFR >60 Refer ence Range : Pioneer ge GFR Healt hy Adult : >60 mL/mi n/1.7 3 m2 Chron ic Kidne y Disea se: 15-60 mL/mi n/1.7 3 m2 Kidne y Failu re: <15/m L/min /1.73 m2 www.n iddk. nih.g ov The MDRD study equat ion has not been valid ated in child marnie <18 years of age; pregn ant women ; the elder ly >85 years of age; or in some racia l or ethni c subgr oups, such as [facility] nics. Outsi de the valid ated colleen eters , estim ated GFR is less accur ate, requi ring clini [place] judgm ent on a case- by-ca se basis . Clini [place] inter preta tion for other races and ages must be made by the clini bill. The MDRD study equat ion has not been valid ated for the evalu ation of serum creat inine relat ed to nutri sugar l statu s or medic ation usage . For perso ns <18 years of age, a pedia tric GFR calcu lator is avail able on the [facility] websi te: https ://radha platt.rashid giles/pr ofess ional s/kdo qi/gf r_cal culat or Not Available [facility] (Lab) [address] [facility] [place], [address], 08/01/2023 14:42:07 08/01/20 23 08/01/2023 COMPR EHENS KLEBER METAB OLIC PANEL alkaline phosphatase 57 U/L 38-126 Not Available [facility] (Lab) [address] [place], [address], 08/01/2023 14:42:07 08/01/20 23 08/01/2023 COMPR EHENS KLEBER METAB OLIC PANEL alanine aminotransfe rase 16 U/L 0-35 Not Available [facility] (Lab) [address] [place], [address], 08/01/2023 14:42:07 08/01/20 23 08/01/2023 COMPR EHENS KLEBER METAB OLIC PANEL aspartate aminotransfe rase 21 U/L 15-37 Not Available [facility] (Lab) [address] [place], [address], 08/01/2023 14:42:07 08/01/20 23 08/01/2023 COMPR EHENS KLEBER METAB OLIC PANEL bilirubin, total 0.30 mg/dL 0.20-1 .30 Not Available [facility] (Lab) [address] [place], [address], 08/01/2023 14:42:07 08/01/20 23 08/01/2023 COMPR EHENS KLEBER METAB OLIC PANEL calcium 9.0 mg/dL 8.4-10 .2 Not Available [facility] (Lab) [address] [place], [address], 08/01/2023 14:42:07 08/01/20 23 08/01/2023 COMPR EHENS KLEBER METAB OLIC PANEL total protein 7.0 g/dL 6.3-8. 2 Not Available [facility] (Lab) [address] [place], [address], 08/01/2023 14:42:07 08/01/20 23 08/01/2023 COMPR EHENS KLEBER METAB OLIC PANEL albumin 4.2 g/dL 3.4-5. 0 Not Available [facility] (Lab) [address] [place], [address], 08/01/2023 14:42:07 08/01/20 23 08/01/2023 COMPR EHENS KLEBER METAB OLIC PANEL globulin 2.8 g/dL 2.6-4. 2 Not Available [facility] (Lab) [address] [place], [address], 08/01/2023 14:42:07 08/01/2008/01/2023 COMPR EHENS KLEBER METAB OLIC PANEL A/G ratio 1.5 ratio 1.0-2. 0 Not Available [facility] (Lab) [address] [place], [address], 08/01/2023 14:42:07 08/01/2008/01/2023 LIPID PANEL cholesterol 245 mg/dL 140-19 9 high NIH EMELIA NSUS RECOM MENDA TION FOR BRAD STERO L: ADULT CHILD LOW RISK: <200 <170 BORDE RLINE : <200- 239 ----- HIGH RISK: >240 >200 Not Available [facility] (Lab) [address] [place], [address], 08/01/2023 14:42:14 08/01/2008/01/2023 LIPID PANEL triglyceride s 49 mg/dL 0-150 NIH EMELIA NSUS REPOR T RECOM MENDA TION FOR TRIGL YCERI GIORGIO: ADULT CHILD LOW RISK: <150 ----- BODER LINE: 150-1 99 ----- HIGH RISK: >200 ----- Not Available [facility] (Lab) [address] [place], [address], 08/01/2023 14:42:14 08/01/2008/01/2023 LIPID PANEL HDL cholesterol 64 mg/dL 40- Not Available [facility] (Lab) [address] [place], [address], 08/01/2023 14:42:14 08/01/20 23 08/01/2023 LIPID PANEL LDL cholesterol, calculated 171 mg/dL 0-130 high NIH EMELIA NSUS REPOR T RECOM MENDA TIONS FOR LDL: ADULT CHILD LOW RISK <130 <110 (OPTI MAL LDL) <100 ----- BORDE RLINE : 130-1 59 ----- HIGH RISK: >160 >130 A TRIGL YCERI DE RESUL T >400 INVAL IDATE S THE CALCU LATIO N FOR LDL FRACT IONAT ION - THE LDL RESUL T WILL NOT BE REPOR NUNU. Not Available [facility] (Lab) [address] [place], [address], 08/01/2023 14:42:14 08/01/2008/01/2023 VITAM IN D 25-HY DROXY vd25oh 43.2 NG/mL 30-100 Vitam in D Statu s: Defic ient: <20 ng/mL Insuf ficie nt: 20-29 ng/mL Suffi cient : 30-10 0 ng/mL Not Available [facility] (Lab) [address] [place], [address], 08/01/2023 15:01:21 08/01/2008/01/2023 TSH W/REF HERMANN FT4 TSH with reflex free T4 1.120 uIU/m L 0.465- 4.680 Not Available [facility] (Lab) [address] [place], [address], 08/01/2023 15:10:15 08/01/20 23 08/01/2023 HEMOG LOBIN A1C HA1C 5.0 % 4.0-6. 0 Diabe susan Scree dorothy Crite frankie: <5.7% Consi stent with absen ce of diabe susan 5.7-6 .4% Consi stent with incre ased risk for diabe susan (pred iabet es) >OR=6 .5% Consi stent with diabe susan REFER ENCE: Diabe susan Care 2016, 39(Webster ppl.1 ):s13 -s22 Not Available [facility] (Lab) [address] [place], [address], 08/01/2023 15:17:12 08/01/20 23 08/01/2023 VITAM IN B12 (KAREEM JEN ) vb12 868 pg/mL 239-93 1 Not Available [facility] (Lab) [address] [place], [address], 08/01/2023 15:29:00 09/05/2009/07/2023 PAP THINP REP, REFLE X HPV diagnosis: Armando SHAHID FOR INTRA EPITH ELIAL LESIO N OR MICHAELLE JOY . Not Available [facility] (Lab) [address] [place], [address], 09/07/2023 20:08:48 09/05/2009/07/2023 PAP THINP REP, REFLE X HPV specimen adequacy: Armando Leavitt Satis sarah reyes for evalu ation . No endoc ervic al compo nent is id entif ied. Not Available [facility] (Lab) [address] [place], [address], 09/07/2023 20:08:48 09/05/2009/07/2023 PAP THINP REP, REFLE X HPV performed by: Armando Ortiz, Cytoiman valerio (ASCP ) Not Available [facility] (Lab) [address] [place], [address], 09/07/2023 20:08:48 10/10/20 23 09/07/2023 PAP THINP REP, REFLE X HPV . . Not Available [facility] (Lab) [address] [place], [address], 09/07/2023 20:08:48 09/05/20 23 09/07/2023 PAP THINP REP, REFLE X HPV note: Commen t The Pap smear is a scree dorothy test desig isaac to aid in the detec tion of randa ligna nt and malig nant condi tions of the uteri ne cervi x. It is not a diagn ostic proce dure and shoul d not be used as the sole means of detec ting cervi [place] cance r. Both false -posi tive and false -nega tive repor ts do occur . . Not Available [facility] (Lab) [address] [place], [address], 09/07/2023 20:08:48 09/05/20 23 09/07/2023 PAP THINP REP, REFLE X HPV test methodology: Commen t This liqui d based ThinP rep(R ) pap test was scree isaac with the use of an image guide d syste m. Not Available [facility] (Lab) [address] [place], [address], 09/07/2023 20:08:48 09/05/20 23 09/07/2023 PAP THINP REP, REFLE X HPV . Commen t The HPV DNA refle x crite frankie were not met with this speci men resul t there fore, no HPV testi ng was perfo rmed. . Perfo rmed at: [facility] [place] [address] [address] [facility] , [place] [address] Lab Direc tor: Dimitri milan MD, Phone : [phone] Perfo rmed at: [facility] [place] [address] , [place] [address] Lab Direc tor: Unruly pedroza MD, Phone : [phone] Not Available [facility] (Lab) [address] [place], [address], 09/07/2023 20:08:48 11/17/20 23 11/17/2023 LIPID PANEL cholesterol 202 mg/dL 140-19 9 high NIH EMELIA NSUS RECOM MENDA TION FOR BRAD STERO L: ADULT CHILD LOW RISK: <200 <170 BORDE RLINE : <200- 239 ----- HIGH RISK: >240 >200 Not Available [facility] (Lab) [address] [place], [address], 11/17/2023 14:29:07 11/17/20 23 11/17/2023 LIPID PANEL triglyceride s 40 mg/dL 0-150 NIH EMELIA NSUS REPOR T RECOM MENDA TION FOR TRIGL YCERI GIORGIO: ADULT CHILD LOW RISK: <150 ----- BODER LINE: 150-1 99 ----- HIGH RISK: >200 ----- Not Available [facility] (Lab) [address] [place], [address], 11/17/2023 14:29:07 11/17/20 23 11/17/2023 LIPID PANEL HDL cholesterol 65 mg/dL 40- Not Available [facility] (Lab) [address] [place], [address], 11/17/2023 14:29:07 11/17/20 23 11/17/2023 LIPID PANEL LDL cholesterol, calculated 129 mg/dL 0-130 NIH EMELIA NSUS REPOR T RECOM MENDA TIONS FOR LDL: ADULT CHILD LOW RISK <130 <110 (OPTI MAL LDL) <100 ----- BORDE RLINE : 130-1 59 ----- HIGH RISK: >160 >130 A TRIGL YCERI DE RESUL T >400 INVAL IDATE S THE CALCU LATIO N FOR LDL FRACT IONAT ION - THE LDL RESUL T WILL NOT BE REPOR NUNU. Not Available [facility] (Lab) [address] [place], [address], 11/17/2023 14:29:07 11/17/20 23 11/17/2023 HEPAT IC/LI BO PANEL alkaline phosphatase 53 U/L 38-126 Not Available [facility] (Lab) [address] [place], [address], 11/17/2023 14:29:18 11/17/20 23 11/17/2023 HEPAT IC/LI BO PANEL alanine aminotransfe rase 18 U/L 0-35 Not Available [facility] (Lab) [address] [place], [address], 11/17/2023 14:29:18 11/17/20 23 11/17/2023 HEPAT IC/LI BO PANEL aspartate aminotransfe rase 23 U/L 15-37 Not Available [facility] (Lab) [address] [place], [address], 11/17/2023 14:29:18 11/17/20 23 11/17/2023 HEPAT IC/LI BO PANEL bilirubin, total 0.40 mg/dL 0.20-1 .30 Not Available [facility] (Lab) [address] [place], [address], 11/17/2023 14:29:18 11/17/20 23 11/17/2023 HEPAT IC/LI BO PANEL bilirubin, conjugated (direct) 0.00 mg/dL 0.00-0 .30 Not Available [facility] (Lab) [address] [place], [address], 11/17/2023 14:29:18 11/17/20 23 11/17/2023 HEPAT IC/LI BO PANEL biliurubin,u ncong. (indirect) 0.30 mg/dL 0.00-1 .1 Not Available [facility] (Lab) [address] [place], [address], 11/17/2023 14:29:18 11/17/20 23 11/17/2023 HEPAT IC/LI BO PANEL total protein 7.2 g/dL 6.3-8. 2 Not Available [facility] (Lab) [address] [place], [address], 11/17/2023 14:29:18 11/17/20 23 11/17/2023 HEPAT IC/LI BO PANEL albumin 4.2 g/dL 3.4-5. 0 Not Available [facility] (Lab) [address] [place], [address], 11/17/2023 14:29:18 11/17/20 23 11/17/2023 HEPAT IC/LI BO PANEL globulin 3.0 g/dL 2.6-4. 2 Not Available [facility] (Lab) [address] [place], [address], 11/17/2023 14:29:18 11/17/20 23 11/17/2023 HEPAT IC/LI BO PANEL A/G ratio 1.4 ratio 1.0-2. 0 Not Available [facility] (Lab) [address] [place], [address], 11/17/2023 14:29:18 04/06/20 23 04/06/2023 XR, cervi [place] spine No observ ation record ed. [email or web address] [place] [address] [facility], [place], [address], 04/10/2023 15:28:37 09/05/20 23 09/05/2023 MAMMO , scree dorothy, digit al, bilat eral No observ ation record ed. [facility] [address] [place], [address], 09/05/2023 19:11:54 Result Notes None recorded. Problems Name Problem SNOMED Code Status Onset Date Resolution Date Notes Provider Name and Address Organization Details Recorded Time Seasonal allergic rhinitis 623457875 Active 2021 Not Available [employer] 21:30:29 Sinusitis 69173806 Active 2021 Not Available [facility] 3 21:30:29 Anxiety 61931834 Active 2020 [facility] Available [facility] 3 21:30:29 Upper respirator y infection 20670206 Active 2021 Not Available [facility] 3 21:30:30 Female stress incontinen ce 69521948 Active 2021 Not Available [facility] 3 21:30:30 Fatigue 73609370 Active 2020 Not Available [facility] 3 21:30:30 Mass of right breast 2079167949011 9106 Active 2022 Rosario Nielsen NP [address], [place], [address] , [employer] [facility] [employer] [facility] 3 14:33:43 Pain of left shoulder joint 4171580333241 9109 Active 2022 Rosario Nielsen NP [address], [address], [place], [address] , [employer] [facility] [employer] [facility] 3 14:40:38 Contusion of right hand 4948386250104 9108 Active 2022 Rosario Nielsen NP [address], [address], [place], [address] , [employer] [facility] [employer] [facility] 3 18:47:12 Contusion of left thigh 4066688580277 9101 Active 2022 Rosario Nielsen NP [address], [address], [place], [address] , [employer] [facility] 3 18:47:19 Abrasion of skin of hand 625633405 Active 2022 Rosario Nielsen NP [address], [place], [address] , [employer] [facility] 3 18:47:44 Neck pain 64294103 Active 2022 Rosario Nielsen NP [address], [address], [place], [address] , [employer] [facility] [employer] 3 11:02:14 Hyperlipid emia 26042743 Active 2022 Rosario Nielsen NP [address], [address], [place], [address] , [facility] [employer] [facility] [employer] 3 11:16:32 Vitamin D deficiency 01857222 Active 2022 Rosario Nielsen NP [address], [address], [place], [address] , [facility] [employer] [facility] [employer] 3 11:17:42 Vitamin B12 deficiency (non anemic) 81691939 Active 2022 Rosario Nielsen NP [address], [address], [place], [address] , [facility] [employer] [facility] [employer] 3 11:17:52 Headache 86616033 Active 2022 Rosario Nielsen NP [address], [address], [place], [address] , [facility] [employer] [facility] [employer] 3 17:14:47 Hyperchole sterolemia 58114584 Active 2022 Rosario Nielsen NP [address], [place], [address] , [facility] [employer] [facility] [employer] 3 10:20:37 Problem Notes None recorded. Procedures Surgical History Date Name Laterality Status Provider Name and Address Organization Details Recorded Time 09/05/20 23 Date of Last Pap Smear completed Rosario Holguin RN [facility] [employer] 09/05/2023 10:09:46 09/05/20 23 Most Recent Mammogram completed Rosario Nielsen NP [address], [place], [address], [facility] [employer] 09/05/2023 19:09:20 11/27/19 10 cholecystectomy completed Shreya Coon CMA [employer] [facility] [employer] [facility] 01/27/2023 14:25:49 Imaging Results Imaging Date Name Status [facility] Details LastModified Time 04/06/2023 XR, cervical spine completed [email or web address] [facility] [address], [place], [address], 04/10/2023 15:28:37 09/05/2023 MAMMO, screening, digital, bilateral completed [facility] [address] [facility], [place], [address], 09/05/2023 19:11:54 Procedure Notes None recorded. Medical Equipment None Reported. Allergies Allergen ID Allergen Name Allergen Category Reaction Reaction Severity Criticality Documentation Date Start Date Code Code System Note Provider Name and Address Organization Details Recorded Time 11788 rosuvasta tin medicatio n palpitati ons Not available Not available 09/05/2023 40491 2 RxNorm Rosario Holguin RN [facility], [place] - [facility] [employer] [facility] 3 10:03:47 Medications Name Sig Start Date Stop Date Status Note LastModified by Organization Details LastModified Time cyclobenzap rine 10 mg tablet Take 1 tablet 3 times a day by oral route. active Not Available Not Available No t Available azithromyci n 250 mg tablet TAKE 2 TABLETS (500 MG) BY ORAL ROUTE ONCE DAILY FOR 1 DAY THEN 1 TABLET (250 MG) BY ORAL ROUTE ONCE DAILY FOR 4 DAYS active Not Available Not Available No t Available metronidazo le 500 mg tablet Take 1 tablet every 8 hours by oral route for 7 days. active Not Available Not Available No t Available amoxicillin 500 mg tablet Take 1 tablet twice a day by oral route. active Not Available Not Available No t Available amoxicillin 875 mg tablet TK 1 T PO Q 12 H 03/24 completed Not Available Not Available Not Available pravastatin 10 mg tablet TAKE 1 TABLET BY MOUTH EVERY DAY AT BEDTIME active Not Available Not Available No t Available rizatriptan 10 mg disintegrat ing tablet TAKE 1 TABLET BY MOUTH ONCE DAILY NEEDED FOR HEADACHE. MAY REPEAT DOSE ONCE AFTER AT LEAST 2 HOURS active Not Available Not Available No t Available diclofenac sodium 75 mg tablet,beckie yed release Take 1 tablet twice a day by oral route for 7 days. active Not Available Not Available No t Available methylpredn isolone 4 mg tablets in a dose pack FOLLOW PACKAGE DIRECTION S 04/18 completed Not Available Not Available Not Available cefdinir 300 mg capsule TK ONE C PO BID 09/12 completed Not Available Not Available Not Available fluticasone propionate 50 mcg/actuati on nasal spray,suspe nsion SHAKE LIQUID AND USE 1 SPRAY IN EACH NOSTRIL DAILY NEEDED active Not Available Not Available No t Available loratadine 10 mg tablet TK 1 T PO D 09/12 completed Not Available Not Available Not Available amoxicillin 875 mg-potassiu m clavulanate 125 mg tablet TK 1 T PO Q 12 H FOR 10 DAYS 09/12 completed Not Available Not Available Not Available amoxicillin 500 mg-potassiu m clavulanate 125 mg tablet TAKE 1 TABLET BY MOUTH EVERY 12 HOURS 07/07 completed Not Available Not Available Not Available cyclobenzap rine 5 mg tablet Take 1 tablet 3 times a day by oral route. 09/05 completed Not Available Not Available Not Available rosuvastati n 5 mg tablet TAKE 1 TABLET BY MOUTH EVERY DAY 08/22 completed Not Available Not Available Not Available biotin 03/31 completed Not Available Not Available Not Available Vitals Date Recorded Body height Body mass index (BMI) Body weight Body temperature Heart rate Respiratory rate Oxygen saturation Oxygen saturation in Arterial blood by Pulse oximetry Systolic blood pressure Diastolic blood pressure Provider Name and Address Organization Details Last Updated DateTime 3 147.32 cm 27.7 kg/m2 09767.9 4 g 97.2 [degF] 60 /min 16 /min 97 % 97 % 108 mm[Hg] 70 mm[Hg] Rosario Holguin RN [facility] [employer] [facility] 3 10:53:39 Date Recorded Body height Body mass index (BMI) Body weight Body temperature Heart rate Respiratory rate Oxygen saturation Oxygen saturation in Arterial blood by Pulse oximetry Systolic blood pressure Diastolic blood pressure Provider Name and Address Organization Details Last Updated DateTime 3 149.86 cm 26.7 kg/m2 49973.1 9 g 96.2 [degF] 62 /min 16 /min 99 % 99 % 112 mm[Hg] 68 mm[Hg] Rosario Holgiun RN [facility] [employer] [facility] 3 10:06:58 Date Recorded Body height Body mass index (BMI) Body weight Body temperature Heart rate Respiratory rate Oxygen saturation Oxygen saturation in Arterial blood by Pulse oximetry Systolic blood pressure Diastolic blood pressure Provider Name and Address Organization Details Last Updated DateTime 149.86 cm 26.3 kg/m2 33669.4 1 g 96.5 [degF] 61 /min 16 /min 98 % 98 % 116 mm[Hg] 70 mm[Hg] Rosario Holguin RN [facility] [employer] [facility] 16:57:25 Date Recorded Body height Provider Name an d Address Organization Details Last Updated DateTime 11/17/2023 149.86 cm Rosario Holguin RN [facility] [employer] [facility] 11/17/2023 10:51:11 Social History Question Answer Notes LastModified by Organization Details LastModified Time Tobacco Smoking Status Never Smoker Not Available [facility] 01/25/2023 21:29:12 Do You Have An Advance Directive? No MIGRATION.0301 074721 Information not available 01/25/2023 What Is Your Level Of Alcohol Consumption? Occasional MIGRATION.0301 498774 Information not available 01/25/2023 Do You Wear A Helmet When Biking? No MIGRATION.0301 [id number] Information not available 01/25/2023 Is Blood Transfusion Acceptable In An Emergency? Yes Information not available 02/22/2023 What Is Your Level Of Caffeine Consumption? Moderate MIGRATION.0301 302394 Information not available 01/25/2023 How Much Tobacco Do You Chew? None MIGRATION.0301 889797 Information not available 01/25/2023 What Is Your Code Status? Full Code Information not available 02/22/2023 In The 14 Days Before Symptom Onset, Have You Had Close Contact With A Laboratory-conf irmed COVID-19 While That Case Was Ill? No MIGRATION.0301 470779 Information not available 01/25/2023 In The 14 Days Before Symptom Onset, Have You Had Close Contact With A Person Who Is Under Investigation For COVID-19 While That Person Was Ill? No MIGRATION.0301 147537 Information not available 01/25/2023 Are You Currently Employed? Yes [employer] [facility] [employer] Information not available 02/22/2023 What Type Of Diet Are You Following? REGULAR MIGRATION.0301 784273 Information not available 01/25/2023 Do You Or Have You Ever Used E-cigarettes Or Vape? Never Used Electronic Cigarettes MIGRATION.0301 891400 Information not available 01/25/2023 What Is The Highest Grade Or Level Of School You Have Completed Or The Highest Degree You Have Received? IG98359-8 MIGRATION.0301 206282 Information not available 01/25/2023 How Many Days Of Moderate To Strenuous Exercise, Like A Brisk Walk, Did You Do In The Last 7 Days? 5 Information not available 02/22/2023 On Those Days That You Engage In Moderate To Strenuous Exercise, How Many Minutes, On Average, Do You Exercise? 60 Information not available 02/22/2023 Have There Been Any Changes To Your Family Or Social Situation? No Information not available 09/05/2023 Are There Any Guns Present In Your Home? No MIGRATION.0301 414644 Information not available 01/25/2023 Do You Use Insect Repellent Routinely? No MIGRATION.0301 149857 Information not available 01/25/2023 Where Do You Live? [place] MIGRATION.0301 619744 Information not available 01/25/2023 Do You Have A Medical Power Of Cable Installer Repairer Helper? No MIGRATION.0301 227136 Information not available 01/25/2023 How Many Children Do You Have? 5 Information not available 02/22/2023 Have You Ever Been Counseled For Unhealthy Alcohol Use? No MIGRATION.0301 030657 Information not available 01/25/2023 Do You Have Any Pets? Yes MIGRATION.0301 889154 Information not available 01/25/2023 Do You Use Protection During Sex? No Information not available 02/22/2023 What Is Your Relationship Status? MIGRATION.0301 732605 Information not available 01/25/2023 Do You Use Your Seat Belt Or Car Seat Routinely? Yes MIGRATION.0301 598027 Information not available 01/25/2023 Are You Sexually Active? Yes Information not available 02/22/2023 Do You Have Smoke And Carbon Monoxide Detectors In Your Home? Yes MIGRATION.0301 042741 Information not available 01/25/2023 Are You Passively Exposed To Smoke? No MIGRATION.0301 126334 Information not available 01/25/2023 Do You Or Have You Ever Used Smokeless Tobacco? Never Used Smokeless Tobacco MIGRATION.0301 380961 Information not available 01/25/2023 Are There Any Smokers In Your House? No MIGRATION.0301 895240 Information not available 01/25/2023 How Much Tobacco Do You Smoke? No MIGRATION.0301 425581 Information not available 01/25/2023 Do You Participate In Social Media? Yes MIGRATION.0301 967186 Information not available 01/25/2023 What Types Of Sporting Activities Do You Participate In? Weightlifting, Walk Information not available 02/22/2023 Do You Feel Stressed (tense, Restless, Nervous, Or Anxious, Or Unable To Sleep At Night)? [id number] Information not available 09/05/2023 Do You Use Any Illicit Or Recreational Drugs? No MIGRATION.0301 340940 Information not available 01/25/2023 Do You Use Sunscreen Routinely? Yes MIGRATION.0301 354886 Information not available 01/25/2023 Has Tobacco Cessation Counseling Been Provided? No MIGRATION.0301 675817 Information not available 01/25/2023 Have You Recently Traveled Abroad? No Information not available 02/22/2023 Are You Currently In School? No MIGRATION.0301 400634 Information not available 01/25/2023 Do You Have Any Dietary Restrictions? No MIGRATION.0301 405364 Information not available 01/25/2023 Do You Or Have You Ever Used Any Other Forms Of Tobacco Or Nicotine? No MIGRATION.0301 185880 Information not available 01/25/2023 Sex: Female Functional Status Question Answer Note LastModified by Organizat ion Details LastModified Time What is your exercise level? Heavy MIGRATION.[id number] Information not available 01/25/2023 Mental Status None recorded. Family History Relationship Description Onset Age of this Age Resolved Age Notes LastModified by Organization Details LastModified Time Father Family history of malignant neoplasm MIGRATION.231 [id number] Not available 01/25/2023 21:29:22 Mother Heart disease MIGRATION.384 [id number] Not available 01/25/2023 21:29:23 Mother Type 2 diabetes mellitus 61 [id number] Not available 14:28:14 Maternal Grandfather Myocardial infarction 66 sudden Not available 04/06 11:09:30 Maternal Uncle Myocardial infarction 45 pacema ker, etc. Not available 04/06/2023 11:11:36 Notes:pt stated she found he r father- Mother psoriatic arthritis and RA. Bio father +diabetes. +history bone cancer, +heart disease, +VT, +ETOH. Medical History Condition Response HEADACHES/MIGRAINES Y Gynecological History Statement/Question Response Date of Last Mammogram 08/11/2022 Date of Last Colonoscopy Most Recent Bone Density Date of LMP Sexually Active? Y Date of Last Pap 03/31/2021 Date of Last Pap Smear 09/05/2023 Most Recent Mammogram 09/05/2023 Breast Problems Lump R breast Obstetrics History GPAL:G 0 P 0 0 0 0 Immunizations Vaccine Type Date Status Note Provider Nam e and Address Organization Details Recorded Time SARS-COV-2 (COVID-19) vaccine, UNSPECIFIED 1 completed Not Available [facility] 01/25/2023 21:31:50 SARS-COV-2 (COVID-19) vaccine, UNSPECIFIED 1 completed Not Available [facility] 01/25/2023 21:31:50 Influenza, split virus, quadrivalent, PF 9 completed Not Available [facility] 01/25/2023 21:31:50 Past Encounters Encounter ID Performer Location Encounter Start Date Encounter Closed Date Diagnosis/Indication Diagnosis SNOMED-CT Code Diagnosis ICD10 Code Diagnosis Note [id number] [address] [address] 03/24/2021 00:00:00 03/24/2021 09:36:[id number] [address] 1 03/31/2021 00:00:00 03/31/2021 09:37:[id number] [address] 04/29/2021 00:00:00 04/29/2021 13:24:[id number] [address] 07/07/2021 00:00:00 07/07/2021 16:32:07 [id number] [facility] [address] [place] [address] 08/10/2021 00:00:00 08/10/2021 15:30:19 [id number] [facility] [address] [place] [address] 12/14/2021 00:00:00 12/14/2021 08:28:01 [id number] [facility] [address] [place] [address] 12/27/2021 00:00:00 12/27/2021 09:41:46 [id number] [facility] [address] [place] [address] 04/13/2022 00:00:00 04/13/2022 09:39:39 [id number] [facility] [address] [place] [address] 04/18/2022 00:00:00 04/18/2022 18:00:42 [id number] [facility] [address] [place] [address] 04/19/2022 00:00:00 04/19/2022 18:45:26 [id number] [facility] [address] [place] [address] 01/27/2023 14:16:41 01/27/2023 16:38:57 Mass of right breast 5248055684 7405502 N63.10 Diagnostic mammogram and US right breast. Pain of le ft shoulder joint 2731606391 9482239 M25.512 PT referral to PT [id number] Rosario Nielsen NP [facility] [address] [place] [address] 02/22/2023 12:18:47 02/22/2023 12:59:28 Mass of right breast 7923116230 9028538 N63.10 Diagnostic mammogram and US right breast found 3 mm mass. Not what patient is concerned with. Fall W19.XXXA doing better day by day. Contusion of right hand 2321050609 6198224 S60.221A improving Contusion of left thigh 2756922930 2788885 S70.12XA improving Abrasion o f skin of hand 789327253 S60.512A improving [id number] Rosario Nielsen NP [facility] [address] 04/06/2023 10:39:31 04/06/2023 11:26:47 Neck pain 83466757 M54.2 Cyclobenza tanvir 5 mg tid prn. Caution for drowsiness , not to drive.Caps acin cream otc.Heat/i ce compress. Anemia screening 6737649 07 Z13.0 Diabetes m ellitus screening 206904371 Z13.1 Thyroid di sorder screening 383937158 Z13.29 Hyperlipidemia 74932308 E78.5 Vitamin D deficiency 347 75621 E55.9 Vitamin B1 2 deficiency (non anemic) 09771214 E53.8 [id number] Rosario Nielsen NP [address] [address] 08/01/2023 09:36:30 08/01/2023 13:00:20 [id number] Rosario Nielsen NP [address] [address] 09/05/2023 09:52:24 09/05/2023 11:03:22 Gynecologic examination 80349390 Z01.419 Encouraged well balanced meals, active lifestyle, and routine vision and dental appts. [id number] Rosario Nielsen NP [address] [address] 11/14/2023 16:44:47 11/14/2023 17:52:49 Headache 18177207 R51.9 Rizatripta n 10 mg prn.Ubrelv y 100 mg x2 and 50 mg x 1 sample given.Stay hydrated, well balanced meals. [id number] Rosario Nielsen NP [facility] [address] [place] [address] 11/17/2023 10:22:50 11/17/2023 11:08:46 Health Concerns Section Related Observation LastModified by Organization Detai ls LastModified Time None Recorded Concern Status LastModified by Organization Details LastModified Time None Recorded Advance Directives Directive N: Payers Encounter Date Sequence Insurance Name Policy Number Policy Hughes Covered Member ID Hughes Member ID Guarantor Name 04/06/2023 1 [facility] [employer] Kj Hoppes [id number] Shreya M [facility] 08/01/2023 1 [facility] [employer] Kj Hoppes [id number] Shreya [facility] 09/05/2023 1 [facility] [employer] Kj Hoppes [id number] Shreya M Hopp[facility] 11/14/2023 1 [facility] [employer] Kj Hoppes [id number] Shreya [facility] 11/17/2023 1 [facility] [employer] Kj M Hoppes [id number] Shreya [facility] Notes Date Note Type Note Provider Name and Address Organization Details Recorded Time 04/06/2023 text/html Here for neck pain. States she is not sure if this is result of her fall in her camper in January 2023. Cousin unexpectedly, increase stress with life, so really unsure cause. Did change pillow, saw chiro and had blading done (was tender), and has gotten some relief, but still bothersome. More pain right posterior neck vs left. Shooting pain right neck and behind right eye. Intermittent and stays < 1 hour period. Was taking tylenol extra strength or excedrin migraine. Ibuprofen did help more than either tylenol or excedrin. Rosario Nielsen NP [address], [place] [address], [place], [address], [facility] [employer] 04/06/2023 11:23:48 09/05/2023 text/html Here for well woman exam. No concerns.Mammogram 08/11/22. Has appt for later today. Rosario Nielsen NP [address], [facility] [address], [place], [address], [employer] [facility] [employer] 09/05/2023 10:38:20 11/14/2023 text/html Here for headach e for 1 week. Pain since 11/09/23.Off and on pain all day. May have started Monday.Took 2 excedrin migraine. Did not sleep well. Stomach upset after.Monday, went back to bed after getting up for a small nap. Had a lot of things to get done over the weekend. Had been wearing hair up, so took hair down, relieved some pain. Still had throbbing pain up and down in head. [place] [facility]. Went homeHas been taking magnesium powder in water before bed. Sleeping better.This morning woke up with headache. Pain in back of head, forehead, in temples, or behind eyes.Pressure to area of pain seems to help and sensitive to light. Has felt nauseated.Monday and Monday took 500 mg tylenol once daily. Helped some, did not go away, but did not make it go away. Throbbing ache. Tingles in face at times. Right now 7/10, When woke up 3/10, at worse 10/10.No change to diet. Water intake 64 ounces minimum.[facility] into [facility] this weekend- patient aware the previous owners had dogs and they had to vacuum up all the dust.Not having menstrual cycles any further. Not a person to have headaches. Rosario Nielsen NP [address], [facility] [address], [place], [address], [employer] [facility] [employer] 11/14/2023 17:35:31 OBGyn Episode No OBEpisode recorded.
== END 2024-12-02 08:55 ==
PROVIDERS: Visit Provider Surgery
PROC: 0DJD8ZZ Inspection of Lower Intestinal Tract, Via Natural or Artificial Opening Endoscopic (ICD-10-PCS; CPT 45378; principal; 2024-12-02 08:30)
DX: Z12.11 Encounter for screening for malignant neoplasm of colon (principal)
CPT/HCPCS: 45378

== ENCOUNTER 2025-03-31 09:59 | Outpatient (CLI) | payer OTHER, SELFPAY ==
--- NOTE | ~2025-03-31 | US_ITS ---
US breast RT limited 03/31/2025 10:21 Indication: Follow-up right breast mass Procedure: High-resolution Limited ultrasound of the right breast Comparison: Comparison to multiple prior studies sequentially, with oldest reviewed study dated 02/13. Findings: At 11:00 near the nipple there is an oval parallel oriented circumscribed hypoechoic 5 mm m ass without internal vascularity or posterior features, unchanged from prior study allowing Impression: 1: Stable 5 mm left breast mass 11:00 near the nipple, likely benign. Recommendation: Six-month interval diagnostic bilateral mammogram and Limited right breast ultrasound recommended. BI-RADS CATEGORY 3-PROBABLY BENIGN FINDING Reviewed, dictated and finalized at location A. Impression: 1: Stable 5 mm left breast mass 11:00 near the nipple, likely benign. Recommendation: Six-month interval diagnostic bilateral mammogram and Limited r ight breast ultrasound recommended. BI-RADS CATEGORY 3-PROBABLY BENIGN FINDING
--- OUTSIDE RECORDS SUMMARY | 2025-03-31 10:50 | XMS_ITS | Clinical Summary ---
Author Organization [facility] [employer] Address [address] [place] [address] Care Team Providers Care Steno Pool Supervisor Name Role Phone Brandi Griffith MD Primary Care Provider Source Comments [facility],non-owned Affiliates and Associated Physician Practices is amultiple site organization consisting of ambulatory clinics and hospital sitesin [place], [place], [place] and [place]. This disclosure is being madepursuant to the Care Everywhere program and may not contain all information available regarding this patient. Last updated 18.[facility] [employer] Allergies No known active allergies Medications * Be aware that medications may not be up to date on this document. Alwaysverify current medications with the patient. MULTIPLE VITAMIN PO Active Active Problems Problem Noted Date Diagnosed Date [...] e alcohol) Very Rarely - per pt Comments Unknown Sex and Gender Information Value Date Recorded Sex Assigned at Not on file Legal Sex Female 7:54 AM CDT Gender Identity Not on file Sexual Orientation [...] SCREENING 1979 LIPID TESTING 1979 MAMMOGRAM 1979 HIV SCREENING 1994 HEPATITIS C SCREENING 10/12/1997 DTAP/TDAP/TD VACCINES (1 - Tdap) 1998 HEPATITIS B VACCINE (1 of 3 - 19+ 3-dose series) 1998 COVID-19 VACCINE (1 - 2023-2 5 season) 2024 DEPRESSION SCREENING 11/27/2024 INFLUENZA VACCINE (Season Ended) 2025 09/12/20 19 ZOSTER VACCINE (1 of 2) 2029 HIB VACCINE Aged Out No longer eligi ble based on patient's age to complete this topic HPV VACCINE Aged Out No longer eligi ble based on patient's age to complete this topic MENINGOCOCCAL (Group B) VACC INE SHARED DECISION-MAKING Aged Out No longer eligibl e based on patient's age to complete this topic MENINGOCOCCAL GROUPS A/C/Y/W VACCINE Aged Out No longer eligible b ased on patient's age to complete this topic PNEUMOCOCCAL VACCINE Aged Out No long er eligible based on patient's age to complete this topic Care Teams Steno Pool Supervisor Relationship Specialty Start Date End Date Brandi Griffith MD [address] [place] [id number] PCP - General 08/17/20
--- OUTSIDE RECORDS SUMMARY | 2025-03-31 10:50 | XMS_ITS | Clinical Summary ---
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
--- OUTSIDE RECORDS SUMMARY | 2025-03-31 10:50 | XMS_ITS | Data Portability ---
Author Organization [place] [facility], Main Office Address [address] [place] [address] Assessment Encounter Date Assessment Date Assessment LastModified by Organization Details LastModified Time 04/06/2023 04/06/2023 Labs after 04/19/23 Not available 04/06/2023 11:23:43 Plan of Treatment Reminders Order Date Submit Date Provider Last Modified By Organization Details Last Modified Time Details Appointments None recorded. Lab pap, IG + reflex HR HPV 2022 023 [facility] (Lab), [address] [place], [address], 3 10:54:57 vitamin B12, serum [address], [address] [place], [address], 3 07:56:25 vitamin D, 25-hydroxy, total, serum [address], [address] [place], [address], 3 07:56:25 TSH, serum, reflex free T4 [address], [address] [place], [address], 3 07:56:24 lipid panel, serum [address], [address] [place], [address], 07:56:24 CMP, serum or plasma [address], [address] [place] [address], [address], 3 07:56:24 HbA1c (hemoglobin A1c), blood [address], [address] [place], [address], 07:56:24 CBC w/ auto diff [address], [address] [place] [address], [address], 07:56:24 Referral None recorded. Procedures None recorded. Surgeries None recorded. Imaging XR, cervical spine [address] [facility], [address], [address] [facility], [place], [address], 16:28:24 Medication Orders rizatriptan 10 mg disintegrat ing tablet 2022 023 [id number], [address] [place], [place], [id number], 17:33:51 cyclobenzap rine 5 mg tablet [address] [id number], [address], [place], [id number], 10:04:10 Patient TargetsNo targets recorded. Patient Instructions Encounter Date Encounter Id Patient Instructions Last Modified By Organization Details Last Modified Time 09/05/2023 [id number] FU in 1 year for well woman after 09/06/24 Not available 09/05/2023 10:37:15 Reason for Referral None Reported. Results Created Date Observation Date Name Description Value Unit Range Abnormal Flag Note LastModifiedBy Organization Detail LastModifiedTime 08/01/20 23 08/01/2023 CBC/C OMPLE TE BLD COUNT W/DIF F white blood cells 5.4 x10'3 /uL 4.2-10 .8 Not Available [facility] (Lab) [address] [place], [address], 08/01/2023 13:58:47 08/01/20 23 08/01/2023 CBC/C OMPLE TE BLD COUNT W/DIF F red blood cells 4.77 x10'6 /uL 3.80-5 .20 Not Available [facility] (Lab) [address] [place], [address], 08/01/2023 13:58:47 08/01/20 23 08/01/2023 CBC/C OMPLE TE BLD COUNT W/DIF F hemoglobin 14.2 g/dL 12.0-1 5.6 Not Available [facility] (Lab) [address] [place], [address], 08/01/2023 13:58:47 08/01/20 23 08/01/2023 CBC/C OMPLE TE BLD COUNT W/DIF F hematocrit 44.0 % 35.7-4 5.7 Not Available [facility] (Lab) [address] [place], [address], 08/01/2023 13:58:47 08/01/20 23 08/01/2023 CBC/C OMPLE TE BLD COUNT W/DIF F mean red cell volume 92.2 fL 82.0-9 9.0 Not Available [facility] (Lab) [address] [place], [address], 08/01/2023 13:58:47 08/01/20 23 08/01/2023 CBC/C OMPLE TE BLD COUNT W/DIF F mean red cell hemoglobin 29.8 pg 27.0-3 3.0 Not Available [facility] (Lab) [address] [place], [address], 08/01/2023 13:58:47 08/01/20 23 08/01/2023 CBC/C OMPLE TE BLD COUNT W/DIF F mean RBC HGB concentratio n 32.3 g/dL 31.0-3 6.0 Not Available [facility] (Lab) [address] [place], [address], 08/01/2023 13:58:47 08/01/20 23 08/01/2023 CBC/C OMPLE TE BLD COUNT W/DIF F red cell distribution width 12.1 % 11.8-1 5.5 Not Available [facility] (Lab) [address] [place], [address], 08/01/2023 13:58:47 08/01/20 23 08/01/2023 CBC/C OMPLE TE BLD COUNT W/DIF F platelets 296 x10'3 /uL 150-40 0 Not Available [facility] (Lab) [address] [place], [address], 08/01/2023 13:58:47 08/01/20 23 08/01/2023 CBC/C OMPLE TE BLD COUNT W/DIF F mean platelet volume 9.3 fL 9.0-12 .4 Not Available [facility] (Lab) [address] [place], [address], 08/01/2023 13:58:47 08/01/20 23 08/01/2023 CBC/C OMPLE TE BLD COUNT W/DIF F neutrophils 52.7 % 39.0-7 2.0 Not Available [facility] (Lab) [address] [place], [address], 08/01/2023 13:58:47 08/01/20 23 08/01/2023 CBC/C OMPLE TE BLD COUNT W/DIF F lymphocytes 32.1 % 16.0-4 7.0 Not Available [facility] (Lab) [address] [place], [address], 08/01/2023 13:58:47 08/01/20 23 08/01/2023 CBC/C OMPLE TE BLD COUNT W/DIF F monocytes 10.9 % 5.0-12 .0 Not Available [facility] (Lab) [address] [place], [address], 08/01/2023 13:58:47 08/01/20 23 08/01/2023 CBC/C OMPLE TE BLD COUNT W/DIF F eosinophils 2.6 % 1.0-7. 0 Not Available [facility] (Lab) [address] [place], [address], 08/01/2023 13:58:47 08/01/20 23 08/01/2023 CBC/C OMPLE TE BLD COUNT W/DIF F basophils 1.3 % 0.0-2. 0 Not Available [facility] (Lab) [address] [place], [address], 08/01/2023 13:58:47 08/01/20 23 08/01/2023 CBC/C OMPLE TE BLD COUNT W/DIF F immature granulocytes 0.4 % 0.00-0 .50 Not Available [facility] (Lab) [address] [place], [address], 08/01/2023 13:58:47 08/01/20 23 08/01/2023 CBC/C OMPLE TE BLD COUNT W/DIF F neutrophils, absolute count 2.86 x10'3 /uL 1.5-8. 0 Not Available [facility] (Lab) [address] [place], [address], 08/01/2023 13:58:47 08/01/20 23 08/01/2023 CBC/C OMPLE TE BLD COUNT W/DIF F lymphocytes, absolute count 1.74 x10'3 /uL 1.07-3 .43 Not Available [facility] (Lab) [address] [place], [address], 08/01/2023 13:58:47 08/01/20 23 08/01/2023 CBC/C OMPLE TE BLD COUNT W/DIF F monocytes, absolute count 0.59 x10'3 /uL 0.29-0 .99 Not Available [facility] (Lab) [address] [place], [address], 08/01/2023 13:58:47 08/01/20 23 08/01/2023 CBC/C OMPLE TE BLD COUNT W/DIF F eosinophils, absolute count 0.14 x10'3 /uL 0.02-0 .53 Not Available [facility] (Lab) [address] [place], [address], 08/01/2023 13:58:47 08/01/20 23 08/01/2023 CBC/C OMPLE TE BLD COUNT W/DIF F basophils, absolute count 0.07 x10'3 /uL 0.01-0 .08 Not Available [facility] (Lab) [address] [place], [address], 08/01/2023 13:58:47 08/01/20 23 08/01/2023 CBC/C OMPLE TE BLD COUNT W/DIF F immature granulocytes ,absolute 0.02 x10'3 /uL 0.00-0 .05 Not Available [facility] (Lab) [address] [place], [address], 08/01/2023 13:58:47 08/01/20 23 08/01/2023 CBC/C OMPLE TE BLD COUNT W/DIF F nucleated red blood cells 0.0 % -0 Not Available [facility] (Lab) [address] [place], [address], 08/01/2023 13:58:47 08/01/20 23 08/01/2023 CBC/C OMPLE TE BLD COUNT W/DIF F NRBC# 0.00 x10'3 /uL Not Available [facility] (Lab) [address] [place], [address], 08/01/2023 13:58:47 08/01/20 23 08/01/2023 COMPR EHENS KLEBER METAB OLIC PANEL sodium 139 mmol/ L 137-14 5 Not Available [facility] (Lab) [address] [place], [address], 08/01/2023 14:42:07 08/01/20 23 08/01/2023 COMPR EHENS KLEBER METAB OLIC PANEL potassium 4.4 mmol/ L 3.5-5. 1 Not Available [facility] (Lab) [address] [place], [address], 08/01/2023 14:42:07 08/01/20 23 08/01/2023 COMPR EHENS KLEBER METAB OLIC PANEL chloride 105 mmol/ L 98-107 Not Available [facility] (Lab) [address] [place], [address], 08/01/2023 14:42:07 08/01/20 23 08/01/2023 COMPR EHENS KLEBER METAB OLIC PANEL carbon dioxide 26 mmol/ L 22-30 Not Available [facility] (Lab) [address] [place], [address], 08/01/2023 14:42:07 08/01/20 23 08/01/2023 COMPR EHENS KLEBER METAB OLIC PANEL anion gap 12.4 mmol/ L 14-22 low Not Available [facility] (Lab) [address] [place], [address], 08/01/2023 14:42:07 08/01/20 23 08/01/2023 COMPR EHENS KLEBER METAB OLIC PANEL glucose 87 mg/dL 70-99 Not Available [facility] (Lab) [address] [place], [address], 08/01/2023 14:42:07 08/01/20 23 08/01/2023 COMPR EHENS KLEBER METAB OLIC PANEL BUN 17 mg/dL 8-19 Not Available [facility] (Lab) [address] [place], [address], 08/01/2023 14:42:07 08/01/20 23 08/01/2023 COMPR EHENS KLEBER METAB OLIC PANEL creatinine 0.71 mg/dL 0.66-1 .25 Not Available [facility] (Lab) [address], [place], [address], 08/01/2023 14:42:07 08/01/20 23 08/01/2023 COMPR EHENS KLEBER METAB OLIC PANEL GFR >60 Refer ence Range : [place] ge GFR Healt hy Adult : >60 [...] or ethni c subgr oups, such as [facility] nics. Outsi de the valid ated [...] calcu lator is avail able on the F websi te: https ://radha w.batool espinozay.o rg/pr ofess ional s/kdo qi/gf r_cal culat or Not Available [facility] (Lab) [address] [facility] [place], [address], 08/01/2023 14:42:07 08/01/20 23 08/01/2023 COMPR EHENS KLEBER METAB OLIC PANEL alkaline phosphatase 57 U/L 38-126 Not Available [facility] (Lab) [address] [place], [address], 08/01/2023 14:42:07 08/01/20 23 08/01/2023 COMPR EHENS KLEBER METAB OLIC PANEL alanine aminotransfe rase 16 U/L 0-35 Not Available [facility] (Lab) [address] [place], [address], 08/01/2023 14:42:07 08/01/20 23 08/01/2023 COMPR EHENS KLEBER METAB OLIC PANEL aspartate aminotransfe rase 21 U/L 15-37 Not Available [facility] (Lab) [address] [place], [address], 08/01/2023 14:42:07 08/01/20 23 08/01/2023 COMPR EHENS KLEBER METAB OLIC PANEL bilirubin, total 0.30 mg/dL 0.20-1 .30 Not Available [facility] (Lab) [address] [place], [address], 08/01/2023 14:42:07 08/01/20 23 08/01/2023 COMPR EHENS KLEBER METAB OLIC PANEL calcium 9.0 mg/dL 8.4-10 .2 Not Available [facility] (Lab) [address] [place], [address], 08/01/2023 14:42:07 08/01/20 23 08/01/2023 COMPR EHENS KLEBER METAB OLIC PANEL total protein 7.0 g/dL 6.3-8. 2 Not Available [facility] (Lab) [address] [place], [address], 08/01/2023 14:42:07 08/01/20 23 08/01/2023 COMPR EHENS KLEBER METAB OLIC PANEL albumin 4.2 g/dL 3.4-5. 0 Not Available [facility] (Lab) [address] [place], [address], 08/01/2023 14:42:07 08/01/20 23 08/01/2023 COMPR EHENS KLEBER METAB OLIC PANEL globulin 2.8 g/dL 2.6-4. 2 Not Available [facility] (Lab) [address] [place], [address], 08/01/2023 14:42:07 08/01/2008/01/2023 COMPR EHENS KLEBER METAB OLIC PANEL A/G ratio 1.5 ratio 1.0-2. 0 Not Available [facility] (Lab) [address] [place], [address], 08/01/2023 14:42:07 08/01/2008/01/2023 LIPID PANEL cholesterol 245 mg/dL 140-19 9 high NIH EMELIA NSUS RECOM MENDA TION FOR BRAD STERO L: ADULT CHILD LOW RISK: <200 <170 BORDE RLINE : <200- 239 ----- HIGH RISK: >240 >200 Not Available [facility] (Lab) [address] [place], [address], 08/01/2023 14:42:14 08/01/2008/01/2023 LIPID PANEL triglyceride s 49 mg/dL 0-150 NIH EMELIA NSUS REPOR T RECOM MENDA TION FOR TRIGL YCERI GIORGIO: ADULT CHILD LOW RISK: <150 ----- BODER LINE: 150-1 99 ----- HIGH RISK: >200 ----- Not Available [facility] (Lab) [address] [place], [address], 08/01/2023 14:42:14 08/01/20 23 08/01/2023 LIPID PANEL HDL cholesterol 64 mg/dL 40- Not Available [facility] (Lab) [address] [place], [address], 08/01/2023 14:42:14 08/01/20 23 08/01/2023 LIPID PANEL [...] WILL NOT BE REPOR NUNU. Not Available [facility] (Lab) [address] [place], [address], 08/01/2023 14:42:14 08/01/2008/01/2023 VITAM IN D 25-HY DROXY vd25oh 43.2 NG/mL 30-100 Vitam in D Statu s: Defic ient: <20 ng/mL Insuf ficie nt: 20-29 ng/mL Suffi cient : 30-10 0 ng/mL Not Available [facility] (Lab) [address] [place], [address], 08/01/2023 15:01:21 08/01/2008/01/2023 TSH W/REF HERMANN FT4 TSH with reflex free T4 1.120 uIU/m L 0.465- 4.680 Not Available [facility] (Lab) [address] [place], [address], 08/01/2023 15:10:15 08/01/2008/01/2023 HEMOG LOBIN A1C HA1C 5.0 % 4.0-6. 0 Diabe susan Scree dorothy Crite frankie: <5.7% Consi stent with absen ce of diabe susan 5.7-6 .4% Consi stent with incre ased risk for diabe susan (pred iabet es) >OR=6 .5% Consi stent with diabe susan REFER ENCE: Diabe susan Care 2016, 39(Webster ppl.1 ):s13 -s22 Not Available [facility] (Lab) [address] [place], [address], 08/01/2023 15:17:12 08/01/20 23 08/01/2023 VITAM IN B12 (KAREEM JEN ) vb12 868 pg/mL 239-93 1 Not Available [facility] (Lab) [address] [place], [address], 08/01/2023 15:29:00 09/05/20 23 09/07/2023 PAP THINP REP, REFLE X HPV diagnosis: Armando SHAHID FOR INTRA EPITH ELIAL LESIO N OR MICHAELLE JOY . Not Available [facility] (Lab) [address] [place], [address], 09/07/2023 20:08:48 09/05/2009/07/2023 PAP THINP REP, REFLE X HPV specimen adequacy: Armando Leavitt Satis factrashid reyes for evalu ation . No endoc ervic al compo nent is id entif ied. Not Available [facility] (Lab) [address] [place], [address], 09/07/2023 20:08:48 09/05/2009/07/2023 PAP THINP REP, REFLE X HPV performed by: Armando Ortiz, Cytot echronal molina t (ASCP ) Not Available [facility] (Lab) [address] [place], [address], 09/07/2023 20:08:48 09/05/20 23 09/07/2023 PAP THINP REP, REFLE X HPV . . Not Available [facility] (Lab) [address] [place], [address], 09/07/2023 20:08:48 09/05/2009/07/2023 PAP THINP REP, REFLE X HPV note: Commen t The Pap smear is a scree odrothy test desig isaac to aid in the [...] ts do occur . . Not Available [facility] (Lab) [address] [place], [address], 09/07/2023 20:08:48 09/05/2009/07/2023 PAP THINP REP, REFLE X HPV test methodology: Commen t This liqui d based ThinP rep(R ) pap test was scree isaac with the use of an image guide d syste m. Not Available [facility] (Lab) [address] [place], [address], 09/07/2023 20:08:48 09/05/2009/07/2023 PAP THINP REP, REFLE X HPV . Commen t The HPV DNA refle x crite frankie were not met with this speci men resul t there fore, no HPV testi ng was perfo rmed. . Perfo rmed at: [facility] [address] [facility] , [place] [address] Lab Direc tor: Dimitri milan MD, Phone : [phone] Perfo rmed at: [facility] [place] [address] [address] [facility] , [place] [address] Lab Direc tor: Unruly pedroza MD, Phone : [phone] Not Available [facility] (Lab) [address] [place], [address], 09/07/2023 20:08:48 11/17/20 23 11/17/2023 LIPID PANEL cholesterol 202 mg/dL 140-19 9 high NIH EMELIA NSUS RECOM MENDA TION FOR BRAD STERO L: ADULT CHILD LOW RISK: <200 <170 BORDE RLINE : <200- 239 ----- HIGH RISK: >240 >200 Not Available [facility] (Lab) [address] [place], [address], 11/17/2023 14:29:07 11/17/20 23 11/17/2023 LIPID PANEL triglyceride s 40 mg/dL 0-150 NIH EMELIA NSUS REPOR T RECOM MENDA TION FOR TRIGL YCERI GIORGIO: ADULT CHILD LOW RISK: <150 ----- BODER LINE: 150-1 99 ----- HIGH RISK: >200 ----- Not Available [facility] (Lab) [address] [place], [address], 11/17/2023 14:29:07 11/17/20 23 11/17/2023 LIPID PANEL HDL cholesterol 65 mg/dL 40- Not Available [facility] (Lab) [address] [place], [address], 11/17/2023 14:29:07 11/17/20 23 11/17/2023 LIPID PANEL [...] WILL NOT BE REPOR NUNU. Not Available [facility] (Lab) [address] [place], [address], 11/17/2023 14:29:07 11/17/20 23 11/17/2023 HEPAT IC/LI BO PANEL alkaline phosphatase 53 U/L 38-126 Not Available [facility] (Lab) [address] [place], [address], 11/17/2023 14:29:18 11/17/20 23 11/17/2023 HEPAT IC/LI BO PANEL alanine aminotransfe rase 18 U/L 0-35 Not Available [facility] (Lab) [address] [place], [address], 11/17/2023 14:29:18 11/17/20 23 11/17/2023 HEPAT IC/LI BO PANEL aspartate aminotransfe rase 23 U/L 15-37 Not Available [facility] (Lab) [address] [place], [address], 11/17/2023 14:29:18 11/17/20 23 11/17/2023 HEPAT IC/LI BO PANEL bilirubin, total 0.40 mg/dL 0.20-1 .30 Not Available [facility] (Lab) [address] [place], [address], 11/17/2023 14:29:18 11/17/20 23 11/17/2023 HEPAT IC/LI BO PANEL bilirubin, conjugated (direct) 0.00 mg/dL 0.00-0 .30 Not Available [facility] (Lab) [address] [place], [address], 11/17/2023 14:29:18 11/17/20 23 11/17/2023 HEPAT IC/LI BO PANEL biliurubin,u ncong. (indirect) 0.30 mg/dL 0.00-1 .1 Not Available [facility] (Lab) [address] [place], [address], 11/17/2023 14:29:18 11/17/20 23 11/17/2023 HEPAT IC/LI BO PANEL total protein 7.2 g/dL 6.3-8. 2 Not Available [facility] (Lab) [address] [place], [address], 11/17/2023 14:29:18 11/17/20 23 11/17/2023 HEPAT IC/LI BO PANEL albumin 4.2 g/dL 3.4-5. 0 Not Available [facility] (Lab) [address] [place], [address], 11/17/2023 14:29:18 11/17/20 23 11/17/2023 HEPAT IC/LI BO PANEL globulin 3.0 g/dL 2.6-4. 2 Not Available [facility] (Lab) [address] [place], [address], 11/17/2023 14:29:18 11/17/20 23 11/17/2023 HEPAT IC/LI BO PANEL A/G ratio 1.4 ratio 1.0-2. 0 Not Available [facility] (Lab) [address] [place], [address], 11/17/2023 14:29:18 04/06/20 23 04/06/2023 XR, cervi [place] spine No observ ation record ed. [email or web address] [address], [place], [address], 04/10/2023 15:28:37 09/05/20 23 09/05/2023 MAMMO , scree dorothy, digit al, bilat eral No observ ation record ed. [facility] [address] [place], [address], 09/05/2023 19:11:54 Result Notes None recorded. Problems Name Problem SNOMED Code Status Onset Date Resolution Date Notes Provider Name and Address Organization Details Recorded Time Seasonal allergic rhinitis 764999978 Active 2021 Not Available [facility] 3 21:30:29 Sinusitis 31864352 Active 2021 Not Available [facility] 3 21:30:29 Anxiety 22702097 Active 2020 Not Available [facility] 3 21:30:29 Upper respirator y infection 05333238 Active 2021 Not Available [facility] 3 21:30:30 Female stress incontinen ce 23198687 Active 2021 [facility] Available [facility] 3 21:30:30 Fatigue 56973305 Active 2020 Not Available [facility] 3 21:30:30 Mass of right breast 3133039149819 9106 Active 2022 Rosario Nielsen NP [address], [place], [address] , [employer] 3 14:33:43 Pain of left shoulder joint 0027280862128 9109 Active 2022 Rosario Nielsen NP [address], [address], [place], [address] , [employer] [facility] 3 14:40:38 Contusion of right hand 1810138131781 9108 Active 2022 Rosario Nielsen NP [address], [address], [place], [address] , [email or web address] [facility] 3 18:47:12 Contusion of left thigh 2342072648617 9101 Active 2022 Rosario Nielsen NP [address], [address], [place], [address] , [employer] [facility] 3 18:47:19 Abrasion of skin of hand 198926623 Active 2022 Rosario Nielsen NP [address], [address], [place], [address] , [email or web address] [facility] 3 18:47:44 Neck pain 28980679 Active 2022 Rosario Nielsen NP [address], [address], [place], [address] , [employer] [facility] 3 11:02:14 Hyperlipid emia 73842368 Active 2022 Rosario Nielsen NP [address], [place], [address] , [facility] [employer] [facility] [employer] 3 11:16:32 Vitamin D deficiency 60638116 Active 2022 Rosario Nielsen NP [address], [address], [place], [address] , [facility] [employer] 3 11:17:42 Vitamin B12 deficiency (non anemic) 47179921 Active 2022 Rosario Nielsen NP [address], [address], [place], [address] , [facility] [employer] [facility] [employer] 11:17:52 Headache 71805834 Active 2022 Rosario Nielsen NP [address], [address], [place], [address] , [facility] [employer] [facility] [employer] 17:14:47 Hyperchole sterolemia 84474057 Active 2022 Rosario Nielsen NP [address], [place], [address] , [facility] [employer] [facility] [employer] 3 10:20:37 Problem Notes None recorded. Procedures Surgical History Date Name Laterality Status Provider Name and Address Organization Details Recorded Time 09/05/20 23 Date of Last Pap Smear completed Rosario Holguin RN [facility] 09/05/2023 10:09:46 09/05/20 23 Most Recent Mammogram completed Rosario Nielsen NP [address], [place], [address], [facility] [employer] 09/05/2023 19:09:20 11/27/19 10 cholecystectomy completed Shreya Coon CMA [facility] 01/27/2023 14:25:49 Imaging Results Imaging Date Name Status [facility] Details LastModified Time 04/06/2023 XR, cervical spine completed [email or web address] [address], [place], [address], 04/10/2023 15:28:37 09/05/2023 MAMMO, screening, digital, bilateral completed [facility] [address] [place], [address], 09/05/2023 19:11:54 Procedure Notes None recorded. Medical Equipment None Reported. Allergies Allergen ID Allergen Name Allergen Category Reaction Reaction Severity Criticality Documentation Date Start Date Code Code System Note Provider Name and Address Organization Details Recorded Time 39088 rosuvasta tin medicatio n palpitati ons Not available Not available 09/05/2023 88684 2 RxNorm Rosario Holguin RN null, [place] [facility] 10:03:47 Medications Name Sig Start Date Stop [...] saturation in Arterial blood by Pulse oximetry Pain severity - 0-10 verbal numeric rating [Score] - Reported Systolic blood pressure Diastolic blood pressure Provider Name and Address Organization Details Last Updated DateTime 3 147.32 cm 27.7 kg/m2 17949.9 4 g 97.2 [degF] 60 /min 16 /min 97 % 97 % 3 108 mm[Hg] 70 mm[Hg] THERESA Fox [facility] 3 10:53:39 Date Recorded Body height Body mass index (BMI) Body weight Body temperature Heart rate Respiratory rate Oxygen saturation Oxygen saturation in Arterial blood by Pulse oximetry Pain severity - 0-10 verbal numeric rating [Score] - Reported Systolic blood pressure Diastolic blood pressure Provider Name and Address Organization Details Last Updated DateTime 3 149.86 cm 26.7 kg/m2 47195.1 9 g 96.2 [degF] 62 /min 16 /min 99 % 99 % 0 112 mm[Hg] 68 mm[Hg] THERESA Fox [facility] 3 10:06:58 Date Recorded Body height Body mass index (BMI) Body weight Body temperature Heart rate Respiratory rate Oxygen saturation Oxygen saturation in Arterial blood by Pulse oximetry Pain severity - 0-10 verbal numeric rating [Score] - Reported Systolic blood pressure Diastolic blood pressure Provider Name and Address Organization Details Last Updated DateTime 149.86 cm 26.3 kg/m2 13035.4 1 g 96.5 [degF] 61 /min 16 /min 98 % 98 % 7 116 mm[Hg] 70 mm[Hg] Rosario Holguin RN [facility] 16:57:25 Date Recorded Body height Provider Name an d Address Organization Details Last Updated DateTime 11/17/2023 149.86 cm Rosario Holguin RN [facility] 11/17/2023 10:51:11 Social History Question Answer Notes LastModified by Organization Details LastModified Time Tobacco Smoking Status Never Smoker Not Available [facility] 01/25/2023 21:29:12 Do You Have An Advance Directive? No MIGRATION.0301 [id number] Information not available 01/25/2023 What Is Your Level Of Alcohol Consumption? Occasional MIGRATION.0301 [id number] Information not available 01/25/2023 Do You Wear A Helmet When Biking? No MIGRATION.0301 [id number] Information not available 01/25/2023 Is Blood Transfusion Acceptable In An Emergency? Yes Information not available 02/22/2023 What Is Your Level Of Caffeine Consumption? Moderate MIGRATION.0301 [id number] Information not available 01/25/2023 How Much Tobacco Do You Chew? None MIGRATION.0301 [id number] Information not available 01/25/2023 What Is Your Code Status? Full Code Information not available 02/22/2023 In The 14 Days Before Symptom Onset, Have You Had Close Contact With A Laboratory-conf irmed COVID-19 While That Case Was Ill? No MIGRATION.0301 [id number] Information not available 01/25/2023 In The 14 Days Before Symptom Onset, Have You Had Close Contact With A Person Who Is Under Investigation For COVID-19 While That Person Was Ill? No MIGRATION.0301 [id number] Information not available 01/25/2023 Are You Currently Employed? Yes [employer] [facility] [employer] Information not available 02/22/2023 What Type Of Diet Are You Following? REGULAR MIGRATION.030 [id number] Information not available 01/25/2023 Do You Or Have You Ever Used E-cigarettes Or Vape? Never Used Electronic Cigarettes MIGRATION.030 [id number] Information not available 01/25/2023 What Is The Highest Grade Or Level Of School You Have Completed Or The Highest Degree You Have Received? [id number] MIGRATION.030 670076 Information not available 01/25/2023 How Many Days [...] Any Guns Present In Your Home? No MIGRATION.030 302335 Information not available 01/25/2023 Do You Use Insect Repellent Routinely? No MIGRATION.030 [id number] Information not available 01/25/2023 Where Do You Live? [place] MIGRATION.030 371005 Information not available 01/25/2023 Do You Have A Medical Power Of Computer Bookkeeper? No MIGRATION.030 033071 Information not available 01/25/2023 How Many Children Do You Have? 5 Information not available 02/22/2023 Have You Ever Been Counseled For Unhealthy Alcohol Use? No MIGRATION.030 051745 Information not available 01/25/2023 Do You Have Any Pets? Yes MIGRATION.030 232639 Information not available 01/25/2023 Do You Use Protection During Sex? No Information not available 02/22/2023 What Is Your Relationship Status? MIGRATION.030 [id number] Information not available 01/25/2023 Do You Use Your Seat Belt Or Car Seat Routinely? Yes MIGRATION.030 322329 Information not available 01/25/2023 Are You Sexually Active? Yes Information not available 02/22/2023 Do You Have Smoke And Carbon Monoxide Detectors In Your Home? Yes MIGRATION.030 [id number] Information not available 01/25/2023 Are You Passively Exposed To Smoke? No MIGRATION.0301 232846 Information not available 01/25/2023 Do You Or Have You Ever Used Smokeless Tobacco? Never Used Smokeless Tobacco MIGRATION.0301 [id number] Information not available 01/25/2023 Are There Any Smokers In Your House? No MIGRATION.0301 [id number] Information not available 01/25/2023 How Much Tobacco Do You Smoke? No MIGRATION.0301 783447 Information not available 01/25/2023 Do You Participate In Social Media? Yes MIGRATION.0301 978603 Information not available 01/25/2023 What Types Of Sporting Activities Do You Participate In? Weightlifting, Walk Information not available 02/22/2023 Do You Feel Stressed (tense, Restless, Nervous, Or Anxious, Or Unable To Sleep At Night)? GU8411-3 Information not available 09/05/2023 Do You Use Any Illicit Or Recreational Drugs? No MIGRATION.0301 349143 Information not available 01/25/2023 Do You Use Sunscreen Routinely? Yes MIGRATION.0301 058054 Information not available 01/25/2023 Has Tobacco Cessation Counseling Been Provided? No MIGRATION.0301 [id number] Information not available 01/25/2023 Have You Recently Traveled Abroad? No Information not available 02/22/2023 Are You Currently In School? No MIGRATION.0301 [id number] Information not available 01/25/2023 Do You Have Any Dietary Restrictions? No MIGRATION.0301 393768 Information not available 01/25/2023 Do You Or Have You Ever Used Any Other Forms Of Tobacco Or Nicotine? No MIGRATION.0301 505322 Information not available 01/25/2023 Sex: Female Functional Status Question Answer Note LastModified by Organizat ion Details LastModified Time What is your exercise level? Heavy MIGRATION.[id number] Information not available 01/25/2023 Mental Status None recorded. Family History Relationship Description Onset Age of this Age Resolved Age Notes LastModified by Organization Details LastModified Time Father Family history of malignant neoplasm MIGRATION.271 [id number] Not available 01/25/2023 21:29:22 Mother Heart disease MIGRATION.749 [id number] Not available 01/25/2023 21:29:23 Mother Type 2 diabetes mellitus 61 [email or web address] Not available 14:28:14 Maternal Grandfather Myocardial infarction 66 sudden Not available 04/06 11:09:30 Maternal Uncle Myocardial infarction 45 pacema ker, etc. Not available 04/06/2023 11:11:36 Notes:pt stated she found he r father- Mother psoriatic arthritis and RA. Bio father +diabetes. +history bone cancer, +heart disease, +[place], +ETOH. Medical History Condition Response HEADACHES/MIGRAINES Y [...] (COVID-19) vaccine, UNSPECIFIED 1 completed Not Available [facility] 01/25/2023 21:31:50 SARS-COV-2 (COVID-19) vaccine, UNSPECIFIED 1 completed Not Available [facility] 01/25/2023 21:31:50 Influenza, split virus, quadrivalent, PF 9 completed Not Available [facility] 01/25/2023 21:31:50 Past Encounters Encounter ID Performer Location Encounter Start Date Encounter Closed Date Diagnosis/Indication Diagnosis SNOMED-CT Code Diagnosis ICD10 Code Diagnosis Note [id number] Curtis Brown MD [address] [address] 03/24/2021 00:00:00 03/24/2021 09:36:41 [id number] Curtis Brown MD [address] [address] 03/31/2021 00:00:00 03/31/2021 09:37:24 [id number] Curtis Brown MD [address] [address] 04/29/2021 00:00:00 04/29/2021 13:24:19 [id number] Curtis Brown MD [facility] [place] [address] [place] [address] 07/07/2021 00:00:00 07/07/2021 16:32:07 [id number] Curtis Brown MD [facility] [address] [place] [address] 08/10/2021 00:00:00 08/10/2021 15:30:19 [id number] Curtis Brown MD [facility] [place] [address] [place] [address] 12/14/2021 00:00:00 12/14/2021 08:28:01 [id number] Curtis Brown MD [facility] [place] [address] [place] [address] 12/27/2021 00:00:00 12/27/2021 09:41:46 [id number] Curtis Brown MD [facility] [place] [address] [place] [address] 04/13/2022 00:00:00 04/13/2022 09:39:39 [id number] Curtis Brown MD [facility] [place] [address] [place] [address] 04/18/2022 00:00:00 04/18/2022 18:00:42 [id number] Curtis Brown MD [facility] [place] [address] [place] [address] 04/19/2022 00:00:00 04/19/2022 18:45:26 [id number] Rosario Nielsen NP [facility] [place] [address] [place] [address] 01/27/2023 14:16:41 01/27/2023 16:38:57 Mass of right breast [id number] N63.10 Diagnostic mammogram and US right breast. Pain of le ft shoulder joint [id number] M25.512 PT referral to PT [id number] Rosario Nielsen NP [address] [address] 02/22/2023 12:18:47 02/22/2023 12:59:28 Mass of right breast [id number] 8265071 N63.10 Diagnostic mammogram and US right breast found 3 mm mass. Not what patient is concerned with. Fall W19.XXXA doing better day by day. Contusion of right hand [id number] 8178738 S60.221A improving Contusion of left thigh 7885772782 1549339 S70.12XA improving Abrasion o f skin of hand 667118596 S60.512A improving [id number] Rosario Nielsen NP [address] [address] 04/06/2023 10:39:31 04/06/2023 11:26:47 Neck pain [id number] M54.2 Cyclobenza tanvir 5 mg tid prn. Caution for drowsiness , not to drive.Caps acin cream otc.Heat/i ce compress. Anemia screening 1661606 07 Z13.0 Diabetes m ellitus screening 923169980 Z13.1 Thyroid di sorder screening 943578226 Z13.29 Hyperlipidemia 63464172 E78.5 Vitamin D deficiency 347 38599 E55.9 Vitamin B1 2 deficiency (non anemic) 71589766 E53.8 [id number] Rosario Nielsen NP [address] [address] 08/01/2023 09:36:30 08/01/2023 13:00:20 [id number] Rosario Nielsen NP [address] [address] 09/05/2023 09:52:24 09/05/2023 11:03:22 Gynecologic examination 74852091 Z01.419 Encouraged well balanced meals, active lifestyle, and routine vision and dental appts. [id number] Rosario Nielsen NP [facility] [address] [place] [address] 11/14/2023 16:44:47 11/14/2023 17:52:49 Headache 85161310 R51.9 Rizatripta n 10 mg prn.Ubrelv y 100 mg x2 and 50 mg x 1 sample given.Stay hydrated, well balanced meals. [id number] Rosario Nielsen NP [facility] [address] [place] [address] 11/17/2023 10:22:50 11/17/2023 11:08:46 Health Concerns Section Related Observation LastModified by Organization Detai ls LastModified Time None Recorded Concern Status LastModified by Organization Details LastModified Time None Recorded Advance Directives Directive N: Payers Encounter Date Sequence Insurance Name Policy Number Policy Hughes Covered Member ID Hughes Member ID Guarantor Name 04/06/2023 1 [facility] - EV BENEFITS MANAGEMENT [id number] 08/01/2023 1 [employer] [facility] [employer] [facility] - EV BENEFITS MANAGEMENT [facility] [id number] [facility] 09/05/2023 1 [employer] [facility] - EV BENEFITS MANAGEMENT [facility] [id number] [facility] 11/14/2023 1 [employer] [facility] [employer] [facility] - EV BENEFITS MANAGEMENT [facility] [id number] [facility] 11/17/2023 1 [facility] HE[facility] - EV BENEFITS MANAGEMENT [facility] [id number] [facility] Notes Date Note Type Note Provider Name [...] excedrin. Rosario Nielsen NP [address], [place], [address], [facility] [employer] 04/06/2023 11:23:48 09/05/2023 text/html Here for well woman exam. No concerns.Mammogram 08/11/22. Has appt for later today. Rosario Nielsen NP [address], [place], [address], [facility] 09/05/2023 10:38:20 11/14/2023 text/html Here for headach [...] diet. Water intake 64 ounces minimum.Moved into [facility] this weekend- patient aware the previous owners had dogs and they had to vacuum up all the dust.Not having menstrual cycles any further. Not a person to have headaches. Rosario Nielsen NP [address], [place], [address], [facility] [employer] 11/14/2023 17:35:31 OBGyn Episode No OBEpisode recorded.
== END 2025-03-31 10:00 | disposition home or self-care (01) ==
LOC: CHSIMG 10:00
PROVIDERS: PCP Nurse Practitioner Family; Visit Provider Nurse Practitioner Family
DX: N63.12 Unspecified lump in the right breast, upper inner quadrant (principal)
CPT/HCPCS: 76642

== ENCOUNTER 2025-09-23 09:54 | Emergency (ER) | payer OTHER, SELFPAY ==
--- NOTE | 2025-09-23 09:58 | ED.URI ---
HPI - URI/Sore Throat General Chief Complaint: Upper Respiratory Infection Stated Complaint: Sore throat Time Seen by Provider: 09/23/25 09:55 Source: patient Mode of arrival: ambulatory Limitations: no limitations History of Present Illness HPI Narrative: Patient is a 44-year-old female who presents with 2 days of sore throat. Patient states she has had an intermittent cough but nothing substantial. Denies any congestion, fever, chills, nausea, vomiting, diarrhea, body aches. Has not taken anything for symptoms. Related Data Allergies Allergy/AdvReac Type Severity Reaction Status Date / Time No Known Allergies Allergy Verified 09/23/25 09:57 Review of Systems Review of Systems: All systems reviewed & are unremarkable except as noted in HPI and below Constitutional: Constitutional: Denies chills, Denies fatigue, Denies fever(s), Denies headache(s), Denies malaise and Denies weakness Eyes: Eyes: Denies blurry vision, Denies itchy eyes and Denies loss of vision ENT: Denies otalgia, Denies headache(s), Denies nasal congestion, Denies sinus pain and Reports sore throat Cardiovascular: Cardiovascular: Denies chest pain, Denies irregular heart rhythm and Denies dyspnea Respiratory: Respiratory: Reports cough and Denies dyspnea Gastrointestinal: Gastrointestinal: Denies abdominal pain, Denies diarrhea, Denies nausea and Denies vomiting Musculoskeletal: Musculoskeletal: Denies back pain, Denies myalgias and Denies arthralgias Integumentary/Breasts: Skin/Breast: Denies pruritus and Denies rash Neurologic: Denies headache(s), Denies loss of vision and Denies weakness Psychiatric: Psychiatric: Reports no additional psychiatric complaints Endocrine: Endocrine: Denies fatigue Allergic/Immunologic: Allergic/Immunologic: Denies itchy eyes PMFSH Past Medical History Medical History Family history of congenital heart disease No significant past medical history Surgical History Surgical History History of cholecystectomy (2009) History of endometrial ablation (~2018) 3 years ago Family History Family History Father Unknown family medical history Mother Diabetes mellitus Hypertension Depression Grandparent Diabetes mellitus Heart disease Social History Social History Social History: 10/19/24 very confident with medical forms Smoking status: Never smoker Tobacco type: cigarettes Second hand tobacco smoke exposure: No Alcohol intake: current Alcohol use details: 0-1 per week Substance use: never Substance use type: does not use Do You Feel Safe in your Home?: Yes Lack of Transportation: No Lack of Food: Never True Current Housing: I Have Housing Concerned About Future Housing: No Difficulty Paying Gas/Electric Bills: No Difficulty Paying for Meds: No Currently Unemployed: No Education: Bachelor's Degree Difficulty w/ Childcare or Family Care: No Living arrangements: with family Occupation/Education: unemployed Gender identity (if verbalized by the patient): Female Sexual Orientation (if Verbalized by the Patient): Straight or Heterosexual Agree to blood products: Yes Comments At time of signature, agree with nursing past medical, surgical, social and family history. There is no relevant family history pertinent to the presenting complaint. Exam Const: General: cooperative, healthy appearing, comfortable, no acute distress and well nourished Nutritional Appearance: well nourished Orientation/consciousness: patient oriented x3 Limitations: no limitations HENMT: Head: normal to inspection, normocephalic and atraumatic Ears: hearing grossly normal bilaterally, external ears normal, TM's normal bilaterally, EAC's normal and no periauricular adenopathy Face/Nose/Sinus: Normal external nose present, Abnormal mucous membranes and turbinates present erythematous bilateral and diffuse, normal facial exam, sinuses nontender and face symmetric Face and sinus: normal facial exam, sinuses nontender and face symmetric Mouth: Yes Normal oral and palatal mucosa present, Yes lip normal, Yes tongue normal, Yes Normal salivary glands and ducts present, Yes oropharynx normal and Yes moist mucous membranes Teeth and gingiva: dentition normal Throat: posterior oropharynx normal, tonsils normal, uvula midline and postnasal drainage Eyes: General: appearance normal, both eyes and all related structures Alignment and Position: alignment normal and position normal Periorbital: periorbital findings normal Eyelids: eyelids normal Pupils: Equal, round and reactive pupils present Neck: Neck: normal visual inspection, full ROM, no lymphadenopathy and supple Chest: Chest palpation & inspection: normal inspection of the chest and normal palpation of entire chest wall Resp: Effort & Inspection: normal respiratory effort and able to speak in complete sentences Auscultation: clear to auscultation bilaterally, no crackles, no rales, no rhonchi and no wheezes Cardio: Rate: regular rate Rhythm: regular rhythm Heart sounds: S1 normal heart sound present and S2 normal heart sound present GI: Inspection: normal to inspection Skin: General skin exam: normal color and no rashes or lesions noted Neuro: General: patient oriented x3 and moves all extremities Cranial nerves: Yes Equal, round and reactive pupils present Speech: normal speech Gait exam (Neuro): Normal gait present Extrem: General: normal to inspection, full ROM and no edema Psych: Appearance: grossly normal and well kempt Mental Status: mental status grossly normal Speech and movement: Normal speech and movement present Affect: normal affect Attitude: cooperative Thought process: Normal thought process present Course Course Emergency Course: Discharge instructions reviewed with patient, as well as provided in writing per nursing staff. The instructions also include specific and strict return/GO TO THE ER as well as f/u information. All questions have been answered, and the patient deny any further questions with discharge and discharge plan. Portions of this record may have been created with voice recognition software Level of Care: Express Care Visit Vital Signs Vital signs: Vital Signs Temperature 36.3 C L 09/23/25 10:00 Pulse Rate 67 09/23/25 10:00 Respiratory Rate 18 09/23/25 10:00 Blood Pressure 115/77 09/23/25 10:00 Pulse Oximetry 100 09/23/25 10:00 Oxygen Delivery Room Air 09/23/25 10:00 Temperature 36.3 C L 09/23/25 10:00 Pulse Rate 67 09/23/25 10:00 Respiratory Rate 18 09/23/25 10:00 Blood Pressure 115/77 09/23/25 10:00 Pulse Oximetry 100 09/23/25 10:00 Oxygen Delivery Room Air 09/23/25 10:00 Reviewed MDM - URI/Sore Throat MDM Narrative Medical decision making narrative: Pt well hydrated appearing, in no respiratory distress, hemodynamically stable. Recommend supportive care. The patient is stable at time of discharge the clinical impression was discussed and the patient was given the opportunity to ask questions, which were addressed as completely as possible given the information available at present. Anticipatory guidance and return to care precautions were discussed and the importance of primary care follow-up was stressed and encouraged. The patient voiced understanding of the plan, indications to return, and the need for follow-up. Exam findings show no acute concerns or changes Patient is appropriate for outpatient treatment and follow-up. Differential diagnosis considered: Longoria virus, strep pharyngitis, allergic rhinitis, upper respiratory tract infection, sinusitis, rhinosinusitis, nasopharyngitis. viral pharyngitis, otitis media, otitis externa, otitis effusion, foreign body, cerumen impaction, viral syndrome, and influenza.? Medical Records Attestation: I reviewed the patient's medical records. Lab Data Attestation: I reviewed the patient's lab results. Labs: Lab Results 09/23/25 Range/Units 10:14 POC Grp A Strep Screen Negative (Negative) Discharge Plan Discharge Clinical Impression: Pharyngitis Qualifiers: Pharyngitis/tonsillitis etiology: unspecified etiology Qualified Code(s): J02.9 - Acute pharyngitis, unspecified Patient Disposition: Home Condition: Stable Instructions: Pharyngitis (ED) Additional Instructions: Your rapid strep swab was negative today at [facility]. A throat culture will be sent to the laboratory for further testing. If the test is positive, you will receive a phone call within 48 hours and an appropriate antibiotic will be initiated at that time. Your symptoms are likely due to a viral illness, which is not treated with antibiotics. Viral symptoms can be present for up to a few weeks. -For pain/fever, you may take: Tylenol 650-1000mg by mouth every 4-6 hours. Do not exceed 4000mg in 24 hours. Advil (Ibuprofen) 600 mg by mouth every 6 hours. Do not exceed 2400mg in 24 hours. 8 AM: Tylenol 11 AM: Ibuprofen 2 PM: Tylenol 5 PM: Ibuprofen 8 PM: Tylenol 11 PM: Ibuprofen 2 AM: Tylenol 5 AM: Ibuprofen -Antihistamine medication such as Benadryl/Zyrtec at night and Claritin/Abiola during the day can help improve symptoms. -Use Flonase twice a day for 5 days then daily to help reduce the inflammation and dry up your sinuses. -You can also use Sudafed behind the pharmacy counter(12 or 24 hour). Be sure to drink plenty of water with these medications at least 8 ounces with every dose and it is important to drink 8 to 10 glasses of water per day. Water is a natural decongestant -Eat and drink things that are easy to swallow, like tea or soup, or popsicles. -Oral rinses such as: Salt water gargles and/or may use topical anesthetic (eg. Chloraseptic spray) or lozenges to relieve dryness or throat pain). -Frequent hand washing or hand film color tester is one of the best ways to prevent spread of infection. -Using a vaporizer or humidifier at night will also help thin secretions and help with coughing up phlegm. Call your Primary Care Doctor and make a follow-up appointment in 3 days. If your cough worsens, you develop a fever greater than 103, you develop shaking chills, a fast heartbeat, trouble breathing and/or feel you are are breathing much faster than usual, call your Primary Care Doctor or go to the ER. Patient Language: Citizen [place] Prescriptions: New fluticasone propionate [Flonase Allergy Relief] 50 mcg/actuation spray,suspension 1 spray intranasal DAILY Qty: 16 0RF Rx Instructions: administer into each nostril No Action pravastatin 20 mg tablet 20 mg PO DAILY Qty: 90 1RF Follow-up/Referrals: Rosario Nielsen APRN [Primary Care Provider, Family Practice] - 3 Days Stand Alone Forms: Work/School Release IP Time of Disposition: 10:15
[2025-09-23 10:00] VITALS: BP 115/77; PULSE 67; RESP 18; TEMP 36.3; O2SAT 100
[2025-09-23 10:16] LABS: EDSTREPNEGPOS1 Negative (Negative)
--- OUTSIDE RECORDS SUMMARY | 2025-09-23 11:05 | XMS_ITS | Clinical Summary ---
Author Organization [facility] Care Team Providers Care Scan Coordinator Name Role Phone Unavailable Primary Care Provider Unavailabl e Social History Tobacco Use Types Packs/Day Years Used Date Smoking Tobacco: Never Assessed Comments Unknown Sex and Gender Information Value Date Recorded Sex Assigned at Not on file Legal Sex Female 11:07 AM VP PATIENT Gender Identity Not on file Sexual Orientation Not on file Plan of Treatment Health Maintenance Due Date Last Done Comments Hepatitis C Virus (HCV) Screening 1979 Hepatitis B Immunization (1 of 3 - 19+ 3-dose series) 1998 Pap Smear 2000 Human Papillomavirus (HPV) Immunization (1 - 3-dose SCDM series) 2006 Cervical Cancer Screening (CCS) 2009 HPV/Cotest 2009 Cologuard 2024 Colonoscopy 2024 Colorectal Cancer Screening 2024 Immunochemical Fecal Occult Blood 2024 Influenza Immunization (#1) 2025 09/12/2019 SARS-COV-2 Immunization ( season) 2025 Respiratory Syncytial Virus (RSV) Immunization (Adult) (1 - 1-dose 75+ series) 2054 DTaP/Tdap/Td Immunization Discontinued 01/18/2016 TdaP Immunization Completed 01/18/2016 Meningococcal Immunization (ACWY) Aged Out No longer eligible based on patient's age to complete this topic Pneumococcal Immunization Combined Aged Out No longer eligible based on patient's age to complete this topic Rotavirus Immunization Aged Out No lo nger eligible based on patient's age to complete this topic
--- OUTSIDE RECORDS SUMMARY | 2025-09-23 11:05 | XMS_ITS | Clinical Summary ---
Author Organization [facility] [employer] Address [address] [place] [address] Care Team Providers Care Dividing Machine Operator Helper Name Role Phone Brandi Griffith MD Primary Care Provider Source Comments [facility],non-owned Affiliates and Associated Physician Practices is amultiple site organization consisting of ambulatory clinics and hospital sitesin [place], [place]. This disclosure is being madepursuant to the Care Everywhere program and may not contain all information available regarding this patient. Last updated 18.[facility] [employer] [facility] Allergies No known active allergies Medications * [...] of 3 - 19+ 3-dose series) 1998 HPV VACCINE (1 - 3-dose SCDM series) 2006 DEPRESSION SCREENING 11/27/2024 COVID-19 VACCINE (1 - 2023-2 5 season) 2025 INFLUENZA VACCINE (#1) 2025 09/12/2019 ZOSTER VACCINE (1 of 2) 2029 HIB [...] age to complete this topic Care Teams Dividing Machine Operator Helper Relationship Specialty Start Date End Date Brandi Griffith MD [address] [place] [id number] PCP - General 08/17/20
== END 2025-09-23 10:16 | disposition home or self-care (01) ==
PROVIDERS: Emergency Provider Nurse Practitioner Family; PCP Nurse Practitioner Family
DX: J02.9 Acute pharyngitis, unspecified (principal)
CPT/HCPCS: 87081; 87880; 99213; G0463

== ENCOUNTER 2025-10-14 08:52 | Outpatient (CLI) | payer OTHER, SELFPAY ==
--- NOTE | ~2025-10-14 | MMUS_ITS ---
EXAMINATION: MM diagnostic mindi BI w yelena, US breast RT limited INDICATION: 44-year old female; BI-RADS 3, short-term follow-up probably benign left breast findings. Screening right breast. COMPARISON: 09/30/2024 through 02/10/2020 TECHNIQUE: Digital breast tomosynthesis bilateral True lateral, CC and MLO views of BILATERAL breast were obtained with computer-aided detection to assist in interpretation of the study. MAMMOGRAM FINDINGS: There are scattered areas of fibroglandular density. No new suspicious mass, calcification or architectural distortion to suggest malignancy in the left breast. LEFT BREAST ULTRASOUND FINDINGS: Targeted evaluation of the area of concern was completed. 0.6 cm parallel orientated hypoechoic circumscribed mass at 11:00 location near the nipple in the LEFT breast redemonstrated is Unchanged. IMPRESSION: Probable Benign LEFT breast findings are unchanged. No mammographic evidence of malignancy within the right breast. RECOMMENDATION: 12 month follow-up diagnostic BILATERAL mammogram and LEFT breast ultrasound. BI-RADS 3, PROBABLY BENIGN Reviewed, dictated and finalized at location C. T MACHINE OPERATOR IMPRESSION: Probable Benign LEFT breast findings are unchanged. No mammographic evidence of malignancy within the right breast. RECOMMENDATION: 12 month follow-up diagnostic BILATERAL mammogram and LEFT breast ultrasound. BI-RADS 3, PROBABLY BENIGN
--- OUTSIDE RECORDS SUMMARY | 2025-10-14 13:11 | XMS_ITS | Clinical Summary ---
Author Organization [facility] [employer] Address [address] [place] [address] Care Team Providers Care It Systems Engineer Name Role Phone Brandi Griffith MD Primary Care Provider Source Comments [facility],non-owned Affiliates and Associated Physician Practices is amultiple site organization consisting of ambulatory clinics and hospital sitesin [place], [place], [place] and [place]. This disclosure is being madepursuant to the Care Everywhere program and may not contain all information available regarding this patient. Last updated 18.[facility] Allergies No known active allergies Medications * [...] of 3 - 19+ 3-dose series) 1998 PAP SMEAR 2000 HPV VACCINE (1 - 3-dose SCDM series) 2006 Cervical Cancer Screening 2009 PAP with HPV 2009 DEPRESSION SCREENING 11/27/2024 COVID-19 VACCINE (1 - 2024-2 6 season) 2025 INFLUENZA VACCINE (#1) 2025 09/12/2019 [...] age to complete this topic Care Teams It Systems Engineer Relationship Specialty Start Date End Date Brandi Griffith MD [address] [place] [address] PCP - General 08/17/20
== END 2025-10-14 08:53 | disposition home or self-care (01) ==
LOC: CHSIMG 08:53
PROVIDERS: PCP Nurse Practitioner Family; Visit Provider Nurse Practitioner Family
DX: R92.8 Other abnormal and inconclusive findings on diagnostic imaging of breast (principal)
CPT/HCPCS: 76642; 77062; 77066; G0279